=== PATIENT | male | born 1945 | race Caucasian/White ===

== ENCOUNTER 2016-09-09 10:33 | Inpatient (IN) | payer MEDICARE ==
[2016-09-09] VITALS (7 sets, daily range): BP systolic 118–133; BP diastolic 73–81; PULSE 62–67; RESP 18; TEMP 98.3–98.4; O2SAT 95–99
[~2016-09-09] VITALS: Ht 172.7 cm; Wt 89.2 kg
[2016-09-09] MEDS: SODIUM CHLOR 0.9% 1000 ML INJ 1,000 ML IV SCH (11:16)
[2016-09-09] MEDS ORDERED: METF500T PO (11:27)
[2016-09-09] MEDS ORDERED: ROSU40 PO (11:27)
[2016-09-09] MEDS ORDERED: CIAL5TAB PO (11:27)
[2016-09-09] MEDS ORDERED: IBUP200T2 PO (11:27)
[2016-09-09] MEDS ORDERED: GLIM1TAB PO (11:27)
[2016-09-09] MEDS ORDERED: ASPI1TAB69 PO (11:27)
[2016-09-09] MEDS ORDERED: LOSA100T2 PO (11:27)
[2016-09-09] MEDS ORDERED: ASPIRIN 325 MG TAB PO SCH (11:30)
[2016-09-09 11:52] LABS: AUTOMATED NEUTROPHIL # 5.4 TH/MM3 (1.8-7.7); BASOPHIL % 0.4 % (0.0-2.0); EOSINOPHIL # 0.1 TH/MM3 (0-0.4); EOSINOPHIL % 1.8 % (0.0-4.0); HEMATOCRIT 44.6 % (39.0-51.0); HEMO FLAGS DIFF FINAL; LYMPH % 17.4 % (9.0-44.0); LYMPHOCYTE # 1.4 TH/MM3 (1.0-4.8); MEAN CELL VOLUME 98.2 FL (80.0-100.0); MEAN CORPUSCULAR HEMOGLOBIN 32.9 PG (27.0-34.0); MEAN CORPUSCULAR HGB CONC 33.5 % (32.0-36.0); MONO % 10.6 % (0.0-8.0); NEUT % 69.8 % (16.0-70.0); PLATELET COUNT 171 TH/MM3 (150-450); RED BLOOD COUNT 4.54 MIL/MM3 (4.50-5.90); RED CELL DISTRIBUTION WIDTH 13.4 % (11.6-17.2); WHITE BLOOD COUNT 7.8 TH/MM3 (4.0-11.0)
[2016-09-09 12:00] LABS: APTT (PATIENT) 26.1 SEC (24.3-30.1); INTERNATIONAL NORMALIZED RATIO 1.1 RATIO; PROTHROMBIN TIME - PATIENT 11.8 SEC (9.8-11.6)
[2016-09-09 12:10] LABS: BICARBONATE 30.4 MEQ/L (21.0-32.0); POTASSIUM 4.6 MEQ/L (3.5-5.1)
[2016-09-09] MEDS ORDERED: MIDAZOLAM HCL 2 MG/2 ML VIAL ONE ×2 (13:01→13:25)
[2016-09-09] MEDS ORDERED: HEPARIN SODIUM - IV 10,000 UNITS/10 ML VIAL ONE ×2 (13:02→13:23)
[2016-09-09] MEDS ORDERED: VERAPAMIL HCL 5 MG/2 ML VIAL ONE (13:02)
[2016-09-09] MEDS ORDERED: MIDAZOLAM HCL 2 MG/2 ML VIAL IV ONE ×3 (13:18→13:57)
[2016-09-09] MEDS ORDERED: VERAPAMIL HCL 5 MG/2 ML VIAL IV PUSH ONE (13:23)
[2016-09-09] MEDS ORDERED: NITROGLYCERIN 1000 MCG/5 ML VIAL OTHER ONE (13:23)
[2016-09-09] MEDS ORDERED: RESP: ALBUTEROL 2.5 MG/3 ML NEB (SCH) ONE (13:44)
--- NOTE | 2016-09-09 16:28 | PD.CAR.PN ---
CVT Progress Note Subjective/Hospital Course: sts data discussed with pt RISK SCORES About the STS Risk Calculator Procedure: AV Replacement + CAB Risk of Mortality: 1.963% Morbidity or Mortality: 17.349% Long Length of Stay: 7.303% Short Length of Stay: 34.872% Permanent Stroke: 2.024% Prolonged Ventilation: 10.332% DSW Infection: 0.744% Renal Failure: 4.455% Reoperation: 8.122% Objective: Vital Signs Date Time Temp Pulse Resp B/P Pulse Ox O2 Delivery O2 Flow Rate FiO2 09/09/16 14:22 Room Air 09/09/16 11:30 98.3 62 18 124/81 99 Labs: Laboratory Tests Test 09/09/16 11:20 White Blood Count 7.8 TH/MM3 (4.0-11.0) Red Blood Count 4.54 MIL/MM3 (4.50-5.90) Hemoglobin 14.9 GM/DL (13.0-17.0) Hematocrit 44.6 % (39.0-51.0) Mean Corpuscular Volume 98.2 FL (80.0-100.0) Mean Corpuscular Hemoglobin 32.9 PG (27.0-34.0) Mean Corpuscular Hemoglobin 33.5 % Concent (32.0-36.0) Red Cell Distribution Width 13.4 % (11.6-17.2) Platelet Count 171 TH/MM3 (150-450) Mean Platelet Volume 7.8 FL (7.0-11.0) Neutrophils (%) (Auto) 69.8 % (16.0-70.0) Lymphocytes (%) (Auto) 17.4 % (9.0-44.0) Monocytes (%) (Auto) 10.6 % (0.0-8.0) Eosinophils (%) (Auto) 1.8 % (0.0-4.0) Basophils (%) (Auto) 0.4 % (0.0-2.0) Neutrophils # (Auto) 5.4 TH/MM3 (1.8-7.7) Lymphocytes # (Auto) 1.4 TH/MM3 (1.0-4.8) Monocytes # (Auto) 0.8 TH/MM3 (0-0.9) Eosinophils # (Auto) 0.1 TH/MM3 (0-0.4) Basophils # (Auto) 0.0 TH/MM3 (0-0.2) CBC Comment DIFF FINAL Differential Comment Prothrombin Time 11.8 SEC (9.8-11.6) Prothromb Time International 1.1 RATIO Ratio Activated Partial 26.1 SEC Thromboplast Time (24.3-30.1) Sodium Level 140 MEQ/L (136-145) Potassium Level 4.6 MEQ/L (3.5-5.1) Chloride Level 103 MEQ/L (98-107) Carbon Dioxide Level 30.4 MEQ/L (21.0-32.0) Anion Gap 7 MEQ/L (5-15) Blood Urea Nitrogen 14 MG/DL (7-18) Creatinine 0.88 MG/DL (0.60-1.30) Estimat Glomerular Filtration 86 ML/MIN (>89) Rate Random Glucose 161 MG/DL (74-106) Calcium Level 8.9 MG/DL (8.5-10.1) Result Diagram: 09/09/16 1120 09/09/16 1120 Jazz Morrow Sep 09, 2016 16:28
[2016-09-09] MEDS ORDERED: METOPROLOL TARTRATE 25 MG TAB PO SCH (17:00)
[2016-09-09] MEDS ORDERED: INSULIN REGULAR (IV INFUSION) 100 UNITS in SODIUM CHLORIDE 0.9% INJ 100 ML IV SCH (17:00)
[2016-09-09] MEDS ORDERED: PAPAVERINE INJ 60 MG, NITROGLYCERIN INJ 100 MCG, DILTIAZEM INJ 100 MG in SODIUM CHLORID... IRRIGATION SCH (17:00)
[2016-09-09] MEDS ORDERED: DEXTROSE 50% IN WATER 50 ML VIAL(D50) IV PUSH PRN (17:00)
[2016-09-09] MEDS ORDERED: SODIUM CHLORIDE 0.9% FLUSH 10 ML FLUSH IVF PRN (17:00)
[2016-09-09] MEDS ORDERED: ONDANSETRON HCL 4 MG/2 ML VIAL IVP PRN (17:00)
[2016-09-09] MEDS ORDERED: SODIUM CHLORIDE 0.9% FLUSH 10 ML FLUSH IV FLUSH PRN (17:00)
[2016-09-09] MEDS ORDERED: CHLORHEXIDINE GLUCONATE 4% SOLN 120 ML BTL TOPICAL SCH (17:00)
[2016-09-09] MEDS ORDERED: SENNOSIDES 8.6 MG TAB PO PRN (17:00)
[2016-09-09] MEDS ORDERED: ACETAMINOPHEN 325 MG TAB PO PRN (17:00)
[2016-09-09] MEDS ORDERED: NALOXONE HCL 0.4 MG/ML AMP IV PRN (17:00)
[2016-09-09] MEDS ORDERED: GLUCAGON 1 MG/ML VIAL OTHER PRN (17:00)
[2016-09-09] MEDS ORDERED: CEFAZOLIN INJ 500 MG in SODIUM CHLORIDE 0.9% IRR BTL 500 ML IRRIGATION SCH (17:00)
[2016-09-09] MEDS ORDERED: PILL SPLITTER OTHER PRN (18:00)
--- NOTE | 2016-09-09 18:01 | RADRPT ---
EXAM DATE/TIME: 09/09/2016 17:44 [facility] COMPARISON: No previous studies available for comparison. INDICATIONS : Evaluate for pneumonia, pneumothorax, or communicable disease. Pre op CABG. MEDICAL HISTORY : None. SURGICAL HISTORY : Cardiac catherization. ENCOUNTER: Initial ACUITY: 1 day PAIN SCORE: 0/10 LOCATION: Bilateral chest FINDINGS: The lungs are clear without infiltrate, nodule, or mass. There is no appreciable pleural effusion fo r technique. Heart and mediastinum are unremarkable. Degenerative changes and hypertrophic changes a re seen within the disc space and facets of the thoracic spine. CONCLUSION: No acute cardiopulmonary disease. Felipe Bello MD on September 09, 2016 at 17:57 Board Certified Radiologist. This report was verified electronically.
--- NOTE | 2016-09-09 19:48 | RADRPT ---
EXAM DATE/TIME: 09/09/2016 18:32 [facility] COMPARISON: No previous studies available for comparison. INDICATIONS : Preop cardiac surgery. MEDICAL HISTORY : Hypertension. Diabetes. SURGICAL HISTORY : Cardiac cath. ENCOUNTER: Initial ACUITY: 1 day PAIN SCORE: 0/10 LOCATION: Bilateral neck PEAK SYSTOLIC VELOCITIES (cm/sec): ICA/CCA RATIO: Right: 1.2 Left: 1.0 ICA: Right: 74 Left: 87 CCA: Right: 61 Left: 89 ECA: Right: 79 Left: 112 VERTEBRAL: Right: 50 antegrade Left: 38 antegrade Elevated flow velocities and ICA/CCA ratios have been found to correlate with increased degrees of vessel stenosis, calculated as percentage of diameter relative to a normal segment of distal ICA/CCA FINDINGS: Antegrade flow is seen in both vertebral arteries. There is mild to moderate atherosclerotic plaquing at the origin of both ICAs without any significant stenosis. CONCLUSION: No evidence for hemodynamically significant stenosis. Felipe Bello MD on September 09, 2016 at 19:46 Board Certified Radiologist. This report was verified electronically.
--- NOTE | 2016-09-09 19:49 | RADRPT ---
EXAM DATE/TIME: 09/09/2016 18:53 [facility] COMPARISON: No previous studies available for comparison. INDICATIONS : Preop cardiac surgery. MEDICAL HISTORY : Hypertension. Diabetes. SURGICAL HISTORY : Cardiac cath. ENCOUNTER: Initial ACUITY: 1 day PAIN SCORE: 0/10 LOCATION: Bilateral leg. GREATER SAPHENOUS VEIN THIGH: PROXIMAL: Right 3 mm Left 4 mm MID: Right 5 mm Left 4 mm DISTAL: Right 4 mm Left 3 mm CALF: PROXIMAL: Right 2 mm Left 4 mm MID: Right 2 mm Left 3 mm DISTAL: Right 3 mm Left 3 mm FINDINGS: The venous system of the lower extremities are patent by color Doppler imaging. Measurements of the leg veins (in mm) are listed above. There is no deep venous thrombosis. CONCLUSION: Normal examination. Felipe Bello MD on September 09, 2016 at 19:48 Board Certified Radiologist. This report was verified electronically.
--- NOTE | 2016-09-09 19:49 | RADRPT ---
EXAM DATE/TIME: 09/09/2016 18:46 [facility] COMPARISON: No previous studies available for comparison. INDICATIONS : Preop cardiac surgery. MEDICAL HISTORY : Hypertension. Diabetes. SURGICAL HISTORY : Cardiac cath. ENCOUNTER: Initial ACUITY: 1 day PAIN SCORE: 0/10 LOCATION: Bilateral leg. TECHNIQUE: Venous ultrasound of the left and right leg was performed from the inguinal ligament to the proximal calf. Real-time, color Doppler and spectral tracing, compression and augmentation techniques were us ed. FINDINGS: RIGHT LEG: There is normal compressibility of the deep venous system from the inguinal region to the proximal ca lf. No echogenic clot is seen in the lumen of the common femoral, femoral, popliteal, and posterior tibial veins. There is a normal response of the venous system to proximal and distal augmentation an d respiration. LEFT LEG: There is normal compressibility of the deep venous system from the inguinal region to the proximal ca lf. No echogenic clot is seen in the lumen of the common femoral, femoral, popliteal, and posterior tibial veins. There is a normal response of the venous system to proximal and distal augmentation an d respiration. CONCLUSION: Normal examination. Felipe Bello MD on September 09, 2016 at 19:47 Board Certified Radiologist. This report was verified electronically.
[2016-09-09] MEDS: SODIUM CHLORIDE 0.9% FLUSH 10 ML FLUSH IV FLUSH SCH (21:00)
[2016-09-09] MEDS: INSULIN ASPART SUPPLEMENTAL SCALE SQ SCH (21:00)
[2016-09-09] MEDS ORDERED: SODIUM CHLORIDE 0.9% FLUSH 10 ML FLUSH IVF SCH (21:00)
[2016-09-09] MEDS: DOCUSATE SODIUM 100 MG CAP PO SCH (21:14)
[2016-09-09] MEDS: NS 1000P @30 MLS/HR (KVO) IV SCH (21:27)
[2016-09-09 22:24] LABS: HEMOGLOBIN A1a 1.2 %; HEMOGLOBIN A1b 0.8 %; HEMOGLOBIN Ao 83.9 %; HEMOGLOBIN LA1C 2.5 %; HEMOGLOBIN P3 4.1 %
[2016-09-09 22:46] LABS: BLOOD, URINE NEG (NEG); COMMENT (UR) CULT NOT INDICATED; CULTURE IF INDICATED CULT NOT INDICATED; GLUCOSE,URINE NEG (NEG); KETONE, URINE NEG (NEG); NITRITE,URINE NEG (NEG); TRANSITIONAL EPI CELLS, URINE <1 /hpf; URINE COLOR LIGHT-YELLOW (YELLW/STRAW)
[2016-09-10] VITALS (27 sets, daily range): BP systolic 121–170; BP diastolic 74–97; PULSE 60–80; RESP 14–18; TEMP 98–98.4; O2SAT 94–98
[2016-09-10] MEDS: INSULIN ASPART SUPPLEMENTAL SCALE SQ SCH ×4 (06:30→21:00)
--- NOTE | 2016-09-10 08:18 | MB ---
cc: LORETTA MC MD DATE OF CONSULTATION 09/09/2016 DATE OF 1945 HISTORY OF THE PRESENT ILLNESS A 71-year-old male, patient of Dr. Mathur and Dr. Fierro. History of aortic stenosis over the past 20 years. Apparently his heart murmur was getting worse so he has been following with Dr. Fierro since 2011, he moved down here from [place]. He had an echocardiogram in the office that showed aortic valve area 0.4, EF of 54%, some mitral valve leaflet calcification, some LVH, left atrial enlargement, mild mitral regurgitation, mild tricuspid regurgitation. He also had a carotid ultrasound in 2013 which showed no flow limiting carotid stenosis. He underwent heart catheterization today and was found to have 70% distal LAD, diagonal was 25%. The OM 75% and the RCA 80%. We were consulted to evaluate for coronary artery bypass grafting, aortic valve replacement. PAST MEDICAL HISTORY The patient's past medical history significant for: 1. Aortic stenosis. 2. Hypertension. 3. Hyperlipidemia. 4. Diabetes mellitus. PAST SURGICAL HISTORY Surgeries include: 1. Tonsillectomy, adenoidectomy. 2. Bilateral cataract surgery. 3. Right Achilles tendon repair. ALLERGIES NO KNOWN ALLERGIES. MEDICATIONS Home medications include: 1. Aspirin 81 daily. 2. Losartan/hydrochlorothiazide 100/25 milligrams p.o. daily. 3. Crestor 40 p.o. daily. 4. Metformin 500 milligrams p.o. twice a day. 5. Glimepiride 1 milligram twice a day. 6. Cialis 5 milligrams as needed. 7. Ibuprofen as needed. FAMILY HISTORY Father from a car accident, had a history of coronary artery bypass grafting at age 60. Mother from pancreatic cancer. Has two daughters and one stepdaughter. SOCIAL HISTORY Patient is a retired dentist. Drinks one alcoholic drink beverage per evening. History of tobacco abuse, smoked for 25 years, quit in 1984 but still smokes an occasional rare cigar. REVIEW OF SYSTEMS GENERAL: No night sweats, fever, heat or cold intolerance. SKIN: No psoriasis, itching or hives. HEENT: No blurred vision, hearing loss. RESPIRATORY: No cough or shortness of breath. CARDIOVASCULAR: No chest pain. No paroxysmal nocturnal dyspnea. No orthopnea. GASTROINTESTINAL: No diarrhea, vomiting. GENITOURINARY: No burning, frequency, urgency CENTRAL NERVOUS SYSTEM: No history of TIA, CVA, seizure disorder. PHYSICAL EXAMINATION VITAL SIGNS: On exam blood pressure was 130/70, heart rate 60, afebrile. GENERAL: The patient is awake, alert, in no acute distress. HEENT: Head is normocephalic, atraumatic. Pupils equal and reactive. Oral mucosa pink, moist. NECK: Supple. No JVD. CARDIOVASCULAR: Heart sounds S1-S2. A grade 3/6 systolic murmur noted left sternal border. LUNGS: Clear to auscultation. No wheezes, rales or rhonchi. ABDOMEN: Soft, nontender. No masses or organomegaly. EXTREMITIES: No cyanosis, clubbing or edema. NEUROLOGIC: Alert and oriented times four. No focal deficits. LABORATORY DATA Lab work shows hemoglobin of 15, hematocrit of 44, white cell count 7.8, platelet count 171. Sodium 140, potassium 4.6, BUN 14, creatinine 0.88, glucose 161. INR 1.1. IMAGING pending is chest x-ray, carotid ultrasound, vein mapping. At this time cardiac films be evaluated by Dr. Loretta Mc. Procedures, alternatives and risks will be discussed with the patient. Plan will be for aortic valve replacement, coronary artery bypass grafting x3. Decision on timing for surgery dependent upon Dr. Loretta Mc. The patient is currently painfree. DICTATED BY: NICK Ambrose Loretta BAUGH /4:12 PM /8:14 AM
[2016-09-10] MEDS: ATORVASTATIN 80 MG TAB PO SCH (08:48)
[2016-09-10] MEDS: ASPIRIN EC 81 MG TABEC PO SCH (08:48)
[2016-09-10] MEDS: DOCUSATE SODIUM 100 MG CAP PO SCH ×2 (08:48→21:46)
[2016-09-10] MEDS: SODIUM CHLORIDE 0.9% FLUSH 10 ML FLUSH IV FLUSH SCH ×2 (08:49→21:00)
--- NOTE | 2016-09-10 10:16 | MA ---
cc: ZAY FIERRO M.D.NICKJANKI DATE: 09/09/2016 INDICATION FOR CATHETERIZATION: Aortic stenosis, critical. CONSENT: A full, informed consent was obtained prior to the procedure. The risks of , bleeding, myocardial infarction, perforation, aspiration, foreseen and unforeseen complications were reviewed. The patient fully appeared to understand the risks. PROCEDURAL STATEMENTS: The right radial artery and right antecubital vein were entered using a micropuncture technique with ultrasound. Via the 7-Cuban venous sheath, a 7-[place]an [place] catheter was used to perform a full right heart catheterization including saturations and cardiac outputs. Following this, a left Katie, 6-Cuban 4 catheter was used to intubate the left main. Multiple angiographic views were carried out and a JR5 catheter used to intubate the right coronary and the left ventricle. Multiple angiographic views were carried out. At the end of the procedure, all catheters were removed. The right radial sheath had a TR band placed and the right antecubital venous sheath was removed and manual pressure applied until good hemostasis was achieved. FINDINGS: I. HEMODYNAMICS: Pulmonary capillary wedge pressure was 16/15 with a mean of 13. The mean pulmonary artery pressure was 32/12 with a mean of 21. The RV pressure was 40 with a right ventricular end-diastolic pressure of 5. The right atrial pressure was 12/5. The LV pressure was 202/16 with a mean of 28. The aortic pressure was 91/57 with a mean of 71. There was evidence of gradient across the aortic valve of 101 mm peak and 80 mm mean. The mean gradient was 80.21 mm. The cardiac output by thermodilution was 4.3 liters/minute average with a valve area of 0.43 cm2. AGUILAR cardiac output which was thought to be unusually increased was 6.5 liters/minute. II. LEFT VENTRICULOGRAM: The overall LV function was normal, estimated at 60%. There was no evidence of significant mitral regurgitation or mural thrombus. III. CORONARIES: The left main was mildly calcified. It was short and free of significant disease. There is diffuse calcification of the LAD and circumflex vessels. The first diagonal branch came off close to the intermediate ramus type position and was free of significant disease. The proximal LAD was free of significant disease, although some mild plaquing was noted. The second diagonal branch was large and bifurcated and has some mild 25% disease. The mid-LAD after the second diagonal branch had a very eccentric stenosis which was difficult to see of 75%. The circumflex vessel was dominant. The circumflex vessel has some mild diffuse disease. The first obtuse marginal branch was small. The second obtuse marginal branch is small. The third obtuse marginal branch had evidence of 75% stenosis. This was a small to medium-sized vessel. The right coronary artery was a nondominant vessel and it had an 80% proximal stenosis. CONCLUSIONS: Significant three-vessel coronary artery disease with severe, almost critical aortic stenosis with aortic valve area of 0.43 cm2 with a mean gradient of 80 and a peak gradient of 101. PLAN: Aortic valve replacement with possible bypass to the ALD and possibly circumflex as per CD Surgery. NOTE: The patient will be discharged later today, will follow up in my office in due course and with Dr. Mathur in due course. Zay Fierro MD, FRCP,FACC SOFY/TANVIR /2:07 PM /9:55 AM
[2016-09-10] MEDS: SODIUM CHLOR 0.9% 1000 ML INJ 1,000 ML IV SCH (11:16)
--- NOTE | 2016-09-10 11:19 | EKG ---
Date Performed: 09/09/2016 Time Performed: 11:38:18 PTAGE: 71 years EKG: Sinus rhythm Possible anteroseptal infarct - age undetermined Lateral ST-T changes are nonspecific Abnormal ECG NO PREVIOUS TRACING DOCTOR: Jaden Chan Interpretating Date/Time 09/10/2016 11:17:14
[2016-09-10] MEDS: NS 1000P @30 MLS/HR (KVO) IV SCH (11:30)
--- NOTE | 2016-09-10 13:37 | PD.CARD.PN ---
Subjective Subjective Remarks No complaints. Family at bedside Objective Medications Current Medications Medications (Trade) Dose Ordered Sig/Vera Route Start Time Stop Time Status Last Admin Sodium Chloride 1,000 ml @ 30 mls/hr Q24H IV 09/09/16 11:30 09/09/16 21:27 (NS 1000 ml Inj) 1,000 ml @ 30 mls/hr Q24H IV 09/09/16 11:16 09/14/16 11:15 (NS Flush) 2 ml UNSCH PRN IV FLUSH 09/09/16 17:00 (NS Flush) 2 ml BID IV FLUSH 09/09/16 21:00 (Tylenol) 650 mg Q4H PRN PO 09/09/16 17:00 (Zofran Inj) 4 mg Q6H PRN IVP 09/09/16 17:00 (Colace) 100 mg Q12HR PO 09/09/16 21:00 09/10/16 08:48 (Senokot) 17.2 mg Q12H PRN PO 09/09/16 17:00 (Narcan Inj) 0.4 mg UNSCH PRN IV 09/09/16 17:00 (D50w (Vial) Inj) 25 ml UNSCH PRN IV PUSH 09/09/16 17:00 (Glucagon Inj) 1 mg UNSCH PRN OTHER 09/09/16 17:00 (Ecotrin Ec) 81 mg DAILY PO 09/10/16 09:00 09/10/16 08:48 (Lipitor) 80 mg DAILY PO 09/10/16 09:00 09/10/16 08:48 (Pill Splitter) 1 ea UNSCH PRN OTHER 09/09/16 18:00 Vital Signs / I&O Vital Signs Date Time Temp Pulse Resp B/P Pulse Ox O2 Delivery O2 Flow Rate FiO2 09/10/16 12:00 63 09/10/16 11:00 65 09/10/16 11:00 98.2 68 16 144/92 94 09/10/16 10:00 69 09/10/16 09:00 74 09/10/16 08:00 71 09/10/16 07:45 98.0 64 14 121/85 95 09/10/16 06:00 63 09/10/16 05:02 61 09/10/16 04:33 64 09/10/16 03:30 98.3 65 16 125/74 95 09/10/16 03:08 64 09/10/16 02:00 61 09/10/16 01:15 67 09/10/16 00:27 65 09/09/16 23:20 98.3 67 18 118/73 95 09/09/16 23:00 66 09/09/16 22:00 62 09/09/16 21:00 66 09/09/16 20:45 98.4 64 18 133/76 95 09/09/16 20:30 64 09/09/16 14:22 Room Air I/O 09/09/16 09/09/16 09/09/16 09/10/16 09/10/16 09/10/16 07:00 15:00 23:00 07:00 15:00 23:00 Intake Total 725 ml Output Total 950 ml Balance -225 ml Intake Oral 480 ml IV Total 245 ml Output Urine Total 950 ml # Bowel Movements 0 Physical Exam GENERAL: Sitting up in the chair eating lunch SKIN: Warm and dry. HEAD: Normocephalic. EYES: No scleral icterus. No injection or drainage. NECK: Supple, trachea midline. CARDIOVASCULAR: Regular rate and rhythm. Late systolic murmur RESPIRATORY: Breath sounds equal bilaterally. No accessory muscle use. GASTROINTESTINAL: Abdomen soft, non-tender, nondistended. MUSCULOSKELETAL: No cyanosis, or edema. BACK: Nontender without obvious deformity. No CVA tenderness. Laboratory Laboratory Tests Test 09/09/16 09/10/16 09/10/16 21:10 05:27 07:20 Urine Color LIGHT-YELLOW Urine Turbidity CLEAR Urine pH 7.0 Urine Specific [place] 1.022 Urine Protein NEG mg/dL Urine Glucose (UA) NEG mg/dL Urine Ketones NEG mg/dL Urine Occult Blood NEG Urine Nitrite NEG Urine Bilirubin NEG Urine Urobilinogen LESS THAN 2.0 MG/DL Urine Leukocyte Esterase NEG Urine WBC 1 /hpf Urine Transitional Epithelial <1 /hpf Cells Microscopic Urinalysis Comment CULT NOT INDICATED Nasal Screen MRSA (PCR) NEGATIVE Blood Type A POSITIVE A POSITIVE Antibody Screen NEGATIVE Crossmatch Leukocyte-Reduced Red Blood Cells Blood Bank Comment Imaging Last 72 hours Impressions Lower Extremity Ultrasound 09/09/16 0000 Signed Impressions: Service Date/Time: Friday, September 09, 2016 18:53 - CONCLUSION: Normal examination. Felipe Bello MD Lower Extremity Ultrasound 09/09/16 0000 Signed Impressions: Service Date/Time: Friday, September 09, 2016 18:46 - CONCLUSION: Normal examination. Felipe Bello MD Chest X-Ray 09/09/16 0000 Signed Impressions: Service Date/Time: Friday, September 09, 2016 17:44 - CONCLUSION: No acute cardiopulmonary disease. Felipe Bello MD Carotid Artery Ultrasound 09/09/16 0000 Signed Impressions: Service Date/Time: Friday, September 09, 2016 18:32 - CONCLUSION: No evidence for hemodynamically significant stenosis. Felipe Bello MD Assessment and Plan Assessment and Plan Assessment: S/p cardiac cath 09/09/2016 evidence ASHD and severe . Pending AVR and CABG tomorrow with Dr Thomson. HTN HLD DM Smoking history Plan: Pending surgery tomorrow Continue statin and ASA. Pending discharge, will initiate BB. Will follow up after surgery Assessment and plan discussed with Dr. Fierro. Jessica Weller Sep 10, 2016 13:37
--- NOTE | 2016-09-10 14:24 | PD.CAR.PN ---
CVT Progress Note Subjective/Hospital Course: 71/ male hx of severe Aortic stenosis / worsening per echo, underwent cardiac cath by Dr Fierro found to have 3 vessel coronary artery disease / 70% distal LAD, 75% OM, 80% RCA admitted for surgery scheduled for PMH: aortic stenosis, HTN, HLP. DM EF 60% 09/09 pt remains pain free, no SOB. scheduled for surgery in am Objective: GENERAL: SKIN: Warm and dry. HEAD: Normocephalic. EYES: No scleral icterus. No injection or drainage. NECK: Supple, trachea midline. No JVD or lymphadenopathy. CARDIOVASCULAR: Regular rate and rhythm without murmurs, gallops, or rubs. RESPIRATORY: Breath sounds equal bilaterally. No accessory muscle use. GASTROINTESTINAL: Abdomen soft, non-tender, nondistended. MUSCULOSKELETAL: No cyanosis, or edema. BACK: Nontender without obvious deformity. No CVA tenderness. Vital Signs Date Time Temp Pulse Resp B/P Pulse Ox O2 Delivery O2 Flow Rate FiO2 09/10/16 12:00 63 09/10/16 11:00 65 09/10/16 11:00 98.2 68 16 144/92 94 09/10/16 10:00 69 09/10/16 09:00 74 09/10/16 08:00 71 09/10/16 07:45 98.0 64 14 121/85 95 09/10/16 06:00 63 09/10/16 05:02 61 09/10/16 04:33 64 09/10/16 03:30 98.3 65 16 125/74 95 09/10/16 03:08 64 09/10/16 02:00 61 09/10/16 01:15 67 09/10/16 00:27 65 09/09/16 23:20 98.3 67 18 118/73 95 09/09/16 23:00 66 09/09/16 22:00 62 09/09/16 21:00 66 09/09/16 20:45 98.4 64 18 133/76 95 09/09/16 20:30 64 09/09/16 14:22 Room Air Labs: Laboratory Tests Test 09/10/16 09/10/16 05:27 07:20 Blood Type A POSITIVE A POSITIVE Antibody Screen NEGATIVE Crossmatch Leukocyte-Reduced Red Blood Cells Blood Bank Comment Result Diagram: 09/09/16 1120 09/09/16 1120 Telemetry: NSR (1) Coronary artery disease Plan: ASA, statin, BB for surgery in am (2) Diabetes mellitus Plan: on diabetic diet, insulin sliding scale (3) Hyperlipemia Plan: on statin (4) Hypertension Plan: controlled, restart ARB after surgery Jazz Morrow Sep 10, 2016 14:24
[2016-09-10] MEDS ORDERED: ALPRAZolam 0.25 MG TAB PO PRN (17:15)
[2016-09-11] VITALS (19 sets, daily range): BP systolic 89–126; BP diastolic 45–75; PULSE 51–72; RESP 12–18; TEMP 97.7–98.6; O2SAT 93–100
[2016-09-11] MEDS ORDERED: HEPARIN SODIUM - SQ 10,000 UNITS/ML VIAL SQ ONE (05:00)
[2016-09-11] MEDS ORDERED: CALCIUM CHLORIDE 10% SOLN 1 GRAM/10 ML SYR IV ONE (05:00)
[2016-09-11] MEDS ORDERED: AMIODARONE HCL 150 MG/3 ML VIAL IV ONE (05:00)
[2016-09-11] MEDS ORDERED: MAGNESIUM SULFATE 1000 MG/2 ML VIAL (PED) IV ONE (05:00)
[2016-09-11] MEDS ORDERED: PROTAMINE SULFATE 250 MG/25 ML VIAL IV ONE (05:00)
[2016-09-11] MEDS ORDERED: DEXMEDETOMIDINE INJ 50 ML IV ONE (05:00)
[2016-09-11] MEDS ORDERED: ARTIFICIAL TEARS OPTH OINT 3.5 APPLIC/3.5 GM TUBO ONE (05:00)
[2016-09-11] MEDS ORDERED: AMINOCAPROIC ACID INJ 250 MG/ML 20 ML VIAL IV ONE (05:00)
[2016-09-11] MEDS ORDERED: PHENYLEPHRINE HCL 10 MG/ML VIAL IV ONE (05:00)
[2016-09-11] MEDS ORDERED: GLYCOPYRROLATE 0.2 MG/ML VIAL IV ONE (05:00)
[2016-09-11] MEDS ORDERED: ceFAZolin 2 GM PREMIX 50 ML IV ONE (05:00)
[2016-09-11] MEDS ORDERED: VECURONIUM BROMIDE 10 MG VIAL IV ONE (05:00)
[2016-09-11] MEDS ORDERED: VANCOMYCIN HCL 1000 MG VIAL ONE (06:29)
[2016-09-11] MEDS ORDERED: HEPARIN SODIUM - SQ 10,000 UNITS/ML VIAL ONE (06:29)
[2016-09-11] MEDS ORDERED: HEPARIN SODIUM - IV 10,000 UNITS/10 ML VIAL ONE (06:44)
[2016-09-11] MEDS ORDERED: POTASSIUM CHLORIDE 20 MEQ/10 ML VIAL ONE (06:45)
[2016-09-11] MEDS ORDERED: CUSTODIOL HTK IRR SOLN 1,000 ML ONE (06:45)
[2016-09-11] MEDS ORDERED: LIDOCAINE HCL 2% 100 MG/5 ML SYRINGE ONE (06:46)
[2016-09-11] MEDS ORDERED: SODIUM BICARBONATE 8.4% INJ 50 ML ONE (06:46)
[2016-09-11] MEDS ORDERED: CALCIUM CHLORIDE 10% SOLN 1 GRAM/10 ML SYR ONE (06:46)
[2016-09-11] MEDS ORDERED: MANNITOL INJ 50 ML ONE (06:47)
[2016-09-11] MEDS ORDERED: ALBUMIN HUMAN 25% 12.5 GM/50 ML BAGP IV ONE (06:47)
[2016-09-11] MEDS: INSULIN ASPART SUPPLEMENTAL SCALE SQ SCH ×2 (07:00→11:00)
[2016-09-11] MEDS: ceFAZolin 2 GM PREMIX 50 ML IV SCH ×3 (07:55→22:55)
[2016-09-11] MEDS ORDERED: LACTATED RINGER'S 1000 ML INJ 3,000 ML IV ONE (08:01)
[2016-09-11] MEDS ORDERED: NORMOSOL R INJ 2,000 ML IV ONE (08:01)
[2016-09-11] MEDS ORDERED: SODIUM CHLORIDE 0.9% INJ 200 ML IV ONE (08:01)
[2016-09-11] MEDS ORDERED: SODIUM CHLOR 0.9% 250 ML INJ 250 ML IV ONE (08:01)
[2016-09-11] MEDS ORDERED: SODIUM CHLORID 0.9% 500 ML INJ 500 ML IV ONE (08:01)
[2016-09-11] MEDS: SODIUM CHLORIDE 0.9% FLUSH 10 ML FLUSH IV FLUSH SCH ×2 (09:00→21:00)
[2016-09-11] MEDS: ATORVASTATIN 80 MG TAB PO SCH (09:00)
[2016-09-11] MEDS: DOCUSATE SODIUM 100 MG CAP PO SCH ×2 (09:00→22:53)
[2016-09-11] MEDS: ASPIRIN EC 81 MG TABEC PO SCH (09:00)
[2016-09-11] MEDS: SODIUM CHLOR 0.9% 1000 ML INJ 1,000 ML IV SCH (11:16)
[2016-09-11] MEDS: NS 1000P @30 MLS/HR (KVO) IV SCH (11:30)
[2016-09-11] MEDS ORDERED: DOBUTamine PREMIX DRIP 250 ML IV SCH (12:53)
[2016-09-11] MEDS ORDERED: LACTATED RINGER'S 1000 ML INJ 500 ML IV PRN (12:53)
[2016-09-11] MEDS ORDERED: MORPHINE SULFATE 4 MG/ML INJ IV PRN (13:00)
[2016-09-11] MEDS ORDERED: EPINEPHrine (1:1000) INJ 4 MG in DEXTROSE 5% IN WATER INJ 246 ML IV SCH ×2 (13:00)
[2016-09-11] MEDS ORDERED: KETOROLAC TROMETHAMINE 30 MG/ML (IVP) VIAL IV PUSH PRN (13:00)
[2016-09-11] MEDS ORDERED: DEXMEDETOMIDINE INJ 50 ML IV SCH (13:00)
[2016-09-11] MEDS ORDERED: DOPamine INJ PREMIX 500 ML IV SCH (13:00)
[2016-09-11] MEDS ORDERED: ACETAMINOPHEN 650 MG SUPP RECTAL PRN (13:00)
[2016-09-11] MEDS ORDERED: INSULIN REGULAR (IV INFUSION) 100 UNITS in SODIUM CHLORIDE 0.9% INJ 99 ML IV SCH (13:00)
[2016-09-11] MEDS ORDERED: ALBUMIN HUMAN 5% 12.5 GM/250 ML BOTTLE IV PRN (13:00)
[2016-09-11] MEDS ORDERED: MAGNESIUM SULFATE INJ 2 GM in SODIUM CHLORIDE 0.9% INJ 100 ML IV PRN ×4 (13:00)
[2016-09-11] MEDS ORDERED: CLEVIDIPINE INJ 50 ML IV SCH (13:00)
[2016-09-11] MEDS ORDERED: DEXTROSE 50% IN WATER 50 ML VIAL(D50) IV PUSH PRN (13:00)
[2016-09-11] MEDS ORDERED: hydrALAZINE HCL 20 MG/ML VIAL IV PRN (13:00)
[2016-09-11] MEDS ORDERED: PHENYLEPHRINE INJ 40 MG in DEXTROSE 5% IN WATE 500 ML INJ 496 ML IV SCH ×2 (13:00)
[2016-09-11] MEDS ORDERED: CALCIUM CHLORIDE INJ 1 GM in SODIUM CHLORIDE 0.9% INJ 100 ML IV PRN (13:00)
[2016-09-11] MEDS ORDERED: ACETAMINOPHEN 325 MG TAB PO PRN (13:00)
[2016-09-11] MEDS ORDERED: CALCIUM CHLORIDE 10% 1 GRAM/10 ML VIAL IV PRN (13:00)
[2016-09-11] MEDS ORDERED: ONDANSETRON HCL 4 MG/2 ML VIAL IV PUSH PRN (13:00)
[2016-09-11] MEDS ORDERED: POTASSIUM CHLORIDE 20 MEQ CONTROLLED RELEASE TAB PO PRN ×2 (13:00)
[2016-09-11] MEDS ORDERED: NITROGLYCERIN-DEXTROSE INJ 250 ML IV SCH (13:00)
[2016-09-11] MEDS ORDERED: METOPROLOL TARTRATE 5 MG/5 ML VIAL IV PUSH PRN (13:00)
[2016-09-11] MEDS ORDERED: POTASSIUM CHLOR 20 MEQ PREMIX 100 ML IV PRN ×3 (13:00)
[2016-09-11] MEDS ORDERED: MEPERIDINE HCL 25 MG/ML VIAL IV PRN (13:00)
[2016-09-11] MEDS ORDERED: Post-op Orders (for Pharmacy) MISC OTHER ONE (13:32)
--- NOTE | 2016-09-11 13:44 | PD.OP ---
cc: Zay Fierro MD; Beronica Thomson MD Operative Report Date of Surgery: Sep 11, 2016 Preoperative Diagnosis: Postoperative Diagnosis: Procedure: 1. Off-pump Coronary Artery Bypass Grafting x 2 with left internal mammary artery (JOHNSON) to left anterior descending (LAD), reverse saphenous vein graft to LPDA 2. Aortic Valve Replacement with 23mm Roe Intuity Elite Tissue Valve 3. Left Leg Endoscopic Vein [place] 4. Intraoperative Vein Mapping. . Surgeon: Beronica Thomson Rail Track Layer(s): Rom Epstein Operation and Findings: PREPROCEDURE DIAGNOSES 1. Severe Multi Vessel Coronary Artery Disease. 2. Critical Aortic Valve Stenosis POSTPROCEDURE DIAGNOSES Same SURGICAL PROCEDURE 1. Off-pump Coronary Artery Bypass Grafting x 2 with left internal mammary artery (JOHNSON) to left anterior descending (LAD), reverse saphenous vein graft to LPDA 2. Aortic Valve Replacement with 23mm Roe Intuity Elite Tissue Valve 3. Left Leg Endoscopic Vein [place] 4. Intraoperative Vein Mapping. SURGEON Beronica Thomson MD EXPLOITATION ANALYST CHRISTINA Devlin ANESTHESIA General endotracheal MEAT STUFFER BRIGITTE Coleman MD PREPARATION ChloraPrep. COUNTS Needle, sponge, and instrument counts were correct. DRAINS Two 32-Greek mediastinal tubes. COMPLICATIONS None. INDICATIONS FOR PROCEDURE The patient is a 71-year-old presenting with shortness of breath and known . Patient was noted to have multi-vessel coronary artery disease in addition to severe . The patient is being brought to the operating room for surgical revascularization and AVR therapy. PROCEDURE Patient was brought to the operating room and placed supine on the OR table. Following the induction of adequate general endotracheal anesthesia and placement of appropriate monitoring devices, intraoperative vein mapping was performed which revealed good-caliber conduit in bilateral lower extremities. The patient was then prepped and draped in standard sterile fashion. Next, 2500 units of intravenous heparin was given. The left greater saphenous vein was harvested endoscopically. This appeared to be a useable-caliber conduit. Simultaneously, a median sternotomy was performed and the left internal mammary artery dissected free off the posterior sternal table. The patient was systemically heparinized and anticoagulation monitored by serial ACT measurements. The internal mammary artery had good pulsatile flow in it and was a good-caliber conduit. The pericardium was then divided in the midline, the cradle created and targets analyzed. At this point, all anastomoses were performed in a beating-heart fashion using the Maquet stabilizing system. The left internal mammary artery was anastomosed to the mid LAD in an end-to-side fashion using 7-0 Prolene. Segment of saphenous vein graft was then anastomosed to the LPDA in an end-to-side fashion using 7-0 Prolene. Then 2 pursestring sutures of 2-0 Ethibond were placed on the aorta proximal to the takeoff of the innominate artery, another was placed in the right atrial appendage. At this point, aortic and 2-stage venous cannulas were introduced and attached to the arterial and venous components of the bypass circuit respectively. Antegrade cardioplegia cannula and a left ventricular vent, through the right superior pulmonary vein, were also placed. The patient was placed on cardiopulmonary bypass and core cooling initiated to a temperature of 32 degrees centigrade. The crossclamp was applied and 2 L of antegrade cardioplegia solution ( Intermediate HTK) given in an antegrade fashion in addition to topical cooling with slushed saline. Upon achieving adequate diastolic arrest of the heart a transverse aortotomy was performed extending towards the non-coronary annulus. The aortic valve was noted to be very heavily calcified with the calcification extending into ascending aorta as well as the anterior leaflet of the mitral valve. The valve was excised and sent for microbiologic analysis. Circumferential decalcification was performed. Three simple sutures of 2-0 Ethibond were placed on the aortic annulus at the nadirs of the three annuli. After adequate sizing, a 23 mm Roe Intuity Elite valve was brought in the surgical field and the sutures passed through the skirt. The valve was situated supra-annular with the skirt subannular. The valve was positioned with expansion of the balloon to 4.5 theresa and the sutures tied with Cor-knots. This appeared to be a good fit. Gradual rewarming was initiated and the aortotomy closed in 2 layers. This was with 4-0 Prolene; the 1st layer being horizontal mattress, the 2nd layer being running baseball stitch. The proximal anastomosis was then constructed to the ascending aorta in a running manner using 6-0 Prolene.The cross clamp was removed and upon achieving normothermic cardiac activity, transesophageal echocardiography revealed a well-situated aortic prosthesis with no evidence of perivalvular leak and no aortic stenosis or aortic regurgitation. Decannulation was performed and all sites were inspected for hemostasis. All anastomotic sites were inspected and appeared to be hemostatic and patent. Protamine solution was given. Strict hemostasis was assured. The closure was undertaken. 2 chest tubes were placed. The pericardium was reapproximated in the midline. The sternum was approximated using sternal wires. The muscular and fascial layer were then closed in 3 layers. The endoscopic vein harvest site was closed in 2 layers. The patient tolerated the procedure well and was transferred to CVICU in stable condition. Beronica Thomson MD Sep 11, 2016 13:44
[2016-09-11] MEDS ORDERED: fentaNYL CITRATE 1000 MCG/20 ML VIAL ONE (13:49)
[2016-09-11] MEDS ORDERED: MIDAZOLAM HCL 5 MG/5 ML VIAL ONE (13:49)
--- NOTE | 2016-09-11 14:04 | RADRPT ---
EXAM DATE/TIME: 09/11/2016 13:44 [facility] COMPARISON: CHEST PA & LAT, September 09, 2016, 17:44. INDICATIONS : Post heart surgery MEDICAL HISTORY : None. SURGICAL HISTORY : None. ENCOUNTER: Initial ACUITY: 1 day PAIN SCORE: Non-responsive. LOCATION: chest FINDINGS: There has been interval sternotomy. Endotracheal tube is present in good position with tip 2 cm above the jaquan. A nasogastric tube descends in the stomach. Thoracostomy tubes are present. Right centra l lines are present. There is mild basilar atelectasis. Cardiac contours are satisfactory for techniq ue and projection. CONCLUSION: Satisfactory postoperative appearance. Alvin Meadows MD on September 11, 2016 at 14:01 Board Certified Radiologist. This report was verified electronically.
[2016-09-11] MEDS: ACETAMINOPHEN 1000 MG/100 ML VIAL IV SCH ×2 (15:12→22:54)
[2016-09-11] MEDS ORDERED: RESP: RACEPINEPHRINE 2.25% 0.5 ML NEB NEB PRN (17:15)
[2016-09-11] MEDS ORDERED: RESP: ALBUTEROL 2.5 MG/IPRATROPIUM 0.5 MG NEB (PRN) NEB (17:15)
[2016-09-11] MEDS ORDERED: PHENYLEPHRINE HCL 10 MG/ML VIAL ONE (18:45)
[2016-09-11] MEDS: RESP: ALBUTEROL 2.5 MG/IPRATROPIUM 0.5 MG NEB (SCH) NEB (20:47)
[2016-09-11] MEDS: AMIODARONE 200 MG TAB PO SCH (22:53)
[2016-09-12] VITALS (11 sets, daily range): BP systolic 102–162; BP diastolic 47–72; PULSE 68–93; RESP 16–18; TEMP 98–99.2; O2SAT 94–99
[2016-09-12] MEDS: ACETAMINOPHEN 1000 MG/100 ML VIAL IV SCH ×2 (03:00→09:56)
[2016-09-12] MEDS: RESP: ALBUTEROL 2.5 MG/IPRATROPIUM 0.5 MG NEB (SCH) NEB ×4 (03:59→22:51)
--- NOTE | 2016-09-12 05:28 | RADRPT ---
EXAM DATE/TIME: 09/12/2016 03:37 [facility] COMPARISON: CHEST SINGLE AP, September 11, 2016, 13:44. INDICATIONS : Status post CABG. MEDICAL HISTORY : None. SURGICAL HISTORY : CABG. ENCOUNTER: Subsequent ACUITY: 4 - 6 days PAIN SCORE: Non-responsive. LOCATION: chest FINDINGS: A single portable frontal view of the chest shows no change in the position of the thoracostomy tubes or central line. The endotracheal tube and nasogastric tube have been removed. A small left effusion and left basilar atelectasis are stable. Right lung is clear. Heart is mildly enlarged. Median chi otomy wires noted. No pneumothorax. CONCLUSION: 1. Tiny left effusion and left basilar atelectasis. 2. No pneumothorax. Vernon Pete Jr., MD on September 12, 2016 at 5:26 Board Certified Radiologist. This report was verified electronically.
[2016-09-12 05:34] LABS: HEMATOCRIT 31.9 % (39.0-51.0); MEAN CELL VOLUME 98.5 FL (80.0-100.0); MEAN CORPUSCULAR HEMOGLOBIN 33.8 PG (27.0-34.0); MEAN CORPUSCULAR HGB CONC 34.3 % (32.0-36.0); PLATELET COUNT 150 TH/MM3 (150-450); RED BLOOD COUNT 3.24 MIL/MM3 (4.50-5.90); RED CELL DISTRIBUTION WIDTH 13.4 % (11.6-17.2); REVIEW FLAG FINAL; WHITE BLOOD COUNT 22.4 TH/MM3 (4.0-11.0)
[2016-09-12] MEDS: ceFAZolin 2 GM PREMIX 50 ML IV SCH ×3 (05:45→20:57)
[2016-09-12] MEDS: ACETAMINOPHEN/HYDROcodone 325 MG/5 MG TAB PO PRN ×3 (05:46→20:56)
[2016-09-12] MEDS: PANTOPRAZOLE SOD 40 MG DELAYED RELEASE TAB PO SCH (06:00)
[2016-09-12 06:06] LABS: BICARBONATE 22.3 MEQ/L (21.0-32.0); POTASSIUM 3.8 MEQ/L (3.5-5.1)
[2016-09-12] MEDS: SODIUM CHLORIDE 0.9% FLUSH 10 ML FLUSH IV FLUSH SCH ×2 (09:00→20:58)
[2016-09-12] MEDS ORDERED: BISACODYL 10 MG SUPP RECTAL PRN (09:15)
[2016-09-12] MEDS ORDERED: DEXTROSE 50% IN WATER 50 ML VIAL(D50) IV PRN (09:15)
[2016-09-12] MEDS ORDERED: SOD PHOSPHATE/SOD BIPHOSPHATE (ADULT) ENEMA 133ML RECTAL PRN (09:15)
[2016-09-12] MEDS ORDERED: GLUCAGON 1 MG/ML VIAL OTHER PRN (09:15)
[2016-09-12] MEDS: CLOPIDOGREL 75 MG TAB PO SCH (09:57)
[2016-09-12] MEDS: ASPIRIN 81 MG CHEW TAB PO SCH (09:57)
[2016-09-12] MEDS: AMIODARONE 200 MG TAB PO SCH ×2 (09:57→20:55)
[2016-09-12] MEDS: ATORVASTATIN 80 MG TAB PO SCH (09:57)
[2016-09-12] MEDS: DOCUSATE SODIUM 100 MG CAP PO SCH ×4 (09:58→20:57)
[2016-09-12] MEDS ORDERED: INSULIN DETEMIR 100 UNITS/ML VIAL SQ ONE (10:00)
[2016-09-12] MEDS: INSULIN ASPART SUPPLEMENTAL SCALE SQ SCH ×4 (10:00→22:00)
[2016-09-12] MEDS: METOPROLOL TARTRATE 25 MG TAB PO SCH ×2 (10:13→20:57)
[2016-09-12] MEDS: NS 1000P @30 MLS/HR (KVO) IV SCH (11:30)
--- NOTE | 2016-09-12 14:34 | PD.CARD.PN ---
Subjective Subjective Remarks The patient is up in the chair. Feels "beat up". Denies acute pain or SOB. Currently on Chicho. NSR. Has not urinated since removing urinary catheter. ( Jessica Weller) Objective Medications Current Medications Medications (Trade) Dose Ordered Sig/Vera Route Start Time Stop Time Status Last Admin (NS 1000 ml Inj) 1,000 ml @ 30 mls/hr Q24H IV 09/09/16 11:30 09/09/16 21:27 (NS Flush) 2 ml UNSCH PRN IV FLUSH 09/09/16 17:00 (NS Flush) 2 ml BID IV FLUSH 09/09/16 21:00 09/12/16 09:00 (Colace) 100 mg Q12HR PO 09/09/16 21:00 09/12/16 09:58 (Senokot) 17.2 mg Q12H PRN PO 09/09/16 17:00 (Narcan Inj) 0.4 mg UNSCH PRN IV 09/09/16 17:00 (Lipitor) 80 mg DAILY PO 09/10/16 09:00 09/12/16 09:57 (Pill Splitter) 1 ea UNSCH PRN OTHER 09/09/16 18:00 Alprazolam 0.25 mg 0.25 mg Q8H PRN PO 09/10/16 17:15 09/10/16 21:46 Phenylephrine HCl 40 mg/Dextrose 500 ml @ 0 mls/hr TITRATE IV 09/11/16 13:00 (Lr 1000 ml Inj) 500 ml @ 500 mls/hr Q1H PRN IV 09/11/16 12:53 (Aspirin Chew) 81 mg DAILY PO 09/12/16 09:00 09/12/16 09:57 (Plavix) 75 mg DAILY PO 09/12/16 09:00 09/12/16 09:57 (Protonix) 40 mg DAILY@06 PO 09/12/16 06:00 09/12/16 06:00 (Cordarone) 200 mg Q12HR PO 09/11/16 21:00 09/12/16 09:57 (Tylenol) 650 mg Q4H PRN PO 09/11/16 13:00 (Tylenol Supp) 650 mg Q4H PRN RECTAL 09/11/16 13:00 (Calvin 5-325 Mg) 1 tab Q3H PRN PO 09/11/16 13:00 09/12/16 05:46 (Calvin 5-325 Mg) 2 tab Q3H PRN PO 09/11/16 13:00 (Toradol Inj) 15 mg Q6H PRN IV PUSH 09/11/16 13:00 09/13/16 12:59 (fentaNYL INJ) 25 mcg Q1H PRN IV 09/11/16 13:00 (Zofran Inj) 4 mg Q6H PRN IV PUSH 09/11/16 13:00 Hydralazine HCl 10 mg 10 mg Q4H PRN IV 09/11/16 13:00 Magnesium Sulfate 2 gm/Sodium Chloride 104 ml @ 100 mls/hr UNSCH PRN IV 09/11/16 13:00 Magnesium Sulfate 2 gm/Sodium Chloride 104 ml @ 50 mls/hr UNSCH PRN IV 09/11/16 13:00 (Ancef 2 Gm Premix) 50 ml @ 100 mls/hr Q8H IV 09/11/16 21:00 09/13/16 05:29 09/12/16 12:52 (Colace) 100 mg BID PO 09/12/16 10:00 (Theragran M Tab) 1 tab DAILY PO 09/13/16 09:00 (Milk Of Magnesia Liq) 30 ml DAILY PO 09/13/16 09:00 (Miralax) 17 gm DAILY PO 09/13/16 09:00 (Senokot) 8.6 mg HS PO 09/12/16 21:00 (Fleets Enema (Adult)) 133 ml UNSCH PRN RECTAL 09/12/16 09:15 (Lopressor) 12.5 mg BID PO 09/12/16 10:00 09/12/16 10:13 (NovoLOG SUPPLEMENTAL SCALE) 1 02,06,10,14,18,22 SQ 09/12/16 10:00 (D50w (Vial) Inj) 25 ml UNSCH PRN IV 09/12/16 09:15 (Glucagon Inj) 1 mg UNSCH PRN OTHER 09/12/16 09:15 (Glucophage) 500 mg BIDPC PO 09/13/16 09:00 (Amaryl) 1 mg DAILYAC PO 09/13/16 08:00 Vital Signs / I&O Vital Signs Date Time Temp Pulse Resp B/P Pulse Ox O2 Delivery O2 Flow Rate FiO2 09/12/16 08:26 95 Nasal Cannula 4.00 09/12/16 07:01 93 16 102/53 96 09/12/16 06:50 20 09/12/16 03:00 84 09/12/16 03:00 99.2 84 18 114/54 94 110/48 09/11/16 23:30 18 09/11/16 23:00 72 09/11/16 23:00 98.2 72 18 102/46 96 104/46 09/11/16 20:47 93 Nasal Cannula 4.00 09/11/16 19:00 98.4 69 18 94/45 96 09/11/16 19:00 61 09/11/16 15:47 59 09/11/16 15:44 98.6 09/11/16 15:35 95 Nasal Cannula 4.00 09/11/16 15:35 95 Nasal Cannula 4 09/11/16 15:00 61 09/11/16 15:00 94 80 09/11/16 15:00 98.3 65 12 95/48 95 90/47 09/11/16 14:53 100 09/11/16 14:30 98.6 I/O 09/11/16 09/11/16 09/11/16 09/12/16 09/12/16 09/12/16 07:00 15:00 23:00 07:00 15:00 23:00 Intake Total 560 ml 2020 ml 1469 ml Output Total 750 ml 780 ml Balance 560 ml 1270 ml 689 ml Intake Oral 560 ml 10 ml 730 ml IV Total 2010 ml 739 ml Output Urine Total 550 ml 600 ml Chest Tube Drainage Total 200 ml 180 ml # Voids 3 # Bowel Movements 0 0 Physical Exam GENERAL: Sitting up in the chair, daughters at bedside SKIN: Warm and dry. HEAD: Normocephalic. EYES: No scleral icterus. No injection or drainage. NECK: Supple, trachea midline. Right IJ central line CARDIOVASCULAR: Regular rate and rhythm. Chest incision dressing C/D/I RESPIRATORY: Breath sounds equal bilaterally. No accessory muscle use. GASTROINTESTINAL: Abdomen soft, non-tender, nondistended. MUSCULOSKELETAL: No cyanosis, mild anasarca BACK: Nontender without obvious deformity. Laboratory Laboratory Tests Test 09/12/16 04:35 White Blood Count 22.4 TH/MM3 Red Blood Count 3.24 MIL/MM3 Hemoglobin 10.9 GM/DL Hematocrit 31.9 % Mean Corpuscular Volume 98.5 FL Mean Corpuscular Hemoglobin 33.8 PG Mean Corpuscular Hemoglobin 34.3 % Concent Red Cell Distribution Width 13.4 % Platelet Count 150 TH/MM3 Mean Platelet Volume 8.3 FL Sodium Level 141 MEQ/L Potassium Level 3.8 MEQ/L Chloride Level 107 MEQ/L Carbon Dioxide Level 22.3 MEQ/L Anion Gap 12 MEQ/L Blood Urea Nitrogen 17 MG/DL Creatinine 0.82 MG/DL Estimat Glomerular Filtration 93 ML/MIN Rate Random Glucose 113 MG/DL Calcium Level 8.4 MG/DL Magnesium Level 2.0 MG/DL Imaging Last 72 hours Impressions Chest X-Ray 09/12/16 0500 Signed Impressions: Service Date/Time: Monday, September 12, 2016 03:37 - CONCLUSION: 1. Tiny left effusion and left basilar atelectasis. 2. No pneumothorax. Vernon Pete Jr., MD Chest X-Ray 09/11/16 0000 Signed Impressions: Service Date/Time: August 13:44 - CONCLUSION: Satisfactory postoperative appearance. Alvin Meadows MD (Jessica Weller) Assessment and Plan Problem List: (1) Coronary artery disease (2) Diabetes mellitus (3) Hyperlipemia (4) Hypertension Assessment and Plan Assessment: S/p AVR and CABG with Dr. Thomson (09/11/2016) Off-pump Coronary Artery Bypass Grafting x 2 with left internal mammary artery (JOHNSON) to left anterior descending (LAD), reverse saphenous vein graft to LPDA and Aortic Valve Replacement with 23mm Roe Intuity Elite Tissue Valve S/p cardiac cath 09/09/2016 evidence ASHD and severe . Pending AVR and CABG tomorrow with Dr Thomson. Post operative respiratory insufficiency HTN- currently hypotensive on pressors HLD DM Smoking history Plan: Plan of care per CV surgery Will follow up on Thursday Assessment and plan discussed with Dr. Fierro. (Jessica Weller) Assessment and Plan The exam, history, and the medical decision-making described in the above note were completed with the assistance of the mid-level provider. I reviewed and agree with the findings presented. I attest that I had a [id number] encounter with the patient on the same day, and personally performed and documented my assessment and findings in the medical record. Pt doing well post AVR CABG. (Zay Fierro MD) Jessica Weller Sep 12, 2016 14:34 Zay Fierro MD Sep 12, 2016 15:01
[2016-09-12] MEDS: SENNOSIDES 8.6 MG TAB PO SCH (20:56)
[2016-09-13] VITALS (27 sets, daily range): BP systolic 108–131; BP diastolic 59–69; PULSE 68–83; RESP 16–20; TEMP 98–99.7; O2SAT 92–99
[2016-09-13] MEDS: ACETAMINOPHEN/HYDROcodone 325 MG/5 MG TAB PO PRN ×5 (01:32→21:15)
[2016-09-13] MEDS: INSULIN ASPART SUPPLEMENTAL SCALE SQ SCH ×5 (01:38→21:00)
[2016-09-13] MEDS: PANTOPRAZOLE SOD 40 MG DELAYED RELEASE TAB PO SCH (04:39)
[2016-09-13] MEDS: ceFAZolin 2 GM PREMIX 50 ML IV SCH (04:40)
[2016-09-13 05:28] LABS: AUTOMATED NEUTROPHIL # 14.3 TH/MM3 (1.8-7.7); HEMATOCRIT 27.1 % (39.0-51.0); HEMO FLAGS DIFF FINAL; LYMPH % 6.2 % (9.0-44.0); LYMPHOCYTE # 1.1 TH/MM3 (1.0-4.8); MEAN CELL VOLUME 98.4 FL (80.0-100.0); MEAN CORPUSCULAR HEMOGLOBIN 33.8 PG (27.0-34.0); MEAN CORPUSCULAR HGB CONC 34.4 % (32.0-36.0); MONO % 10.7 % (0.0-8.0); NEUT % 83.1 % (16.0-70.0); PLATELET COUNT 107 TH/MM3 (150-450); RED BLOOD COUNT 2.76 MIL/MM3 (4.50-5.90); RED CELL DISTRIBUTION WIDTH 13.1 % (11.6-17.2); WHITE BLOOD COUNT 17.3 TH/MM3 (4.0-11.0)
[2016-09-13 05:42] LABS: BICARBONATE 28.5 MEQ/L (21.0-32.0); MAGNESIUM 2.1 MG/DL (1.5-2.5)
[2016-09-13] MEDS: RESP: ALBUTEROL 2.5 MG/IPRATROPIUM 0.5 MG NEB (SCH) NEB ×2 (07:46→12:54)
[2016-09-13] MEDS: GLIMEPIRIDE 1 MG TAB PO SCH (08:14)
[2016-09-13] MEDS: DOCUSATE SODIUM 100 MG CAP PO SCH ×4 (09:00→21:15)
[2016-09-13] MEDS: SODIUM CHLORIDE 0.9% FLUSH 10 ML FLUSH IV FLUSH SCH ×2 (09:00→21:00)
[2016-09-13] MEDS: ATORVASTATIN 80 MG TAB PO SCH (09:04)
[2016-09-13] MEDS: ASPIRIN 81 MG CHEW TAB PO SCH (09:05)
[2016-09-13] MEDS: POLYETHYLENE GLYCOL 17 GM PKG PO SCH (09:06)
[2016-09-13] MEDS: METOPROLOL TARTRATE 25 MG TAB PO SCH ×2 (09:06→21:14)
[2016-09-13] MEDS: metFORMIN HCL 500 MG TAB PO SCH ×2 (09:06→17:16)
[2016-09-13] MEDS: MAGNESIUM HYDROXIDE SUSP 30 ML CUP PO SCH (09:06)
[2016-09-13] MEDS: MULTIVITAMINS/MINERALS THERAPEUTIC TAB PO SCH (09:06)
[2016-09-13] MEDS: AMIODARONE 200 MG TAB PO SCH ×2 (09:06→21:16)
[2016-09-13] MEDS: CLOPIDOGREL 75 MG TAB PO SCH (09:07)
[2016-09-13] MEDS: NS 1000P @30 MLS/HR (KVO) IV SCH (10:52)
--- NOTE | 2016-09-13 11:04 | EKG ---
Date Performed: 09/12/2016 Time Performed: 04:03:48 PTAGE: 71 years EKG: Sinus rhythm . Possible inferior infarct - age undetermined Abnormal ECG PREVIOUS TRACING : 09/09/2016 11.38 DOCTOR: Yair Zimmerman Interpretating Date/Time 09/13/2016 11:02:27
--- NOTE | 2016-09-13 11:28 | PD.CAR.PN ---
CVT Progress Note CVT: POD #: 2 Subjective/Hospital Course: 71/ male hx of severe Aortic stenosis / worsening per echo, underwent cardiac cath by Dr Fierro found to have 3 vessel coronary artery disease / 70% distal LAD, 75% OM, 80% RCA admitted for surgery scheduled for PMH: aortic stenosis, HTN, HLP. DM EF 60% 09/09 pt remains pain free, no SOB. scheduled for surgery in am 09/13/16 No complaints. Doing very well. Objective: Vital Signs Date Time Temp Pulse Resp B/P Pulse Ox O2 Delivery O2 Flow Rate FiO2 09/13/16 10:00 68 09/13/16 09:11 18 09/13/16 09:00 82 09/13/16 08:15 99.7 83 18 126/65 97 09/13/16 08:00 80 09/13/16 07:47 94 Nasal Cannula 2.00 09/13/16 07:00 78 09/13/16 06:00 75 09/13/16 05:19 75 09/13/16 04:00 73 09/13/16 03:00 75 09/13/16 03:00 98.0 75 18 119/69 99 09/13/16 02:00 80 09/13/16 01:00 78 09/13/16 00:00 79 09/12/16 23:00 98.3 82 16 118/62 97 09/12/16 23:00 77 09/12/16 22:51 97 Nasal Cannula 5.00 09/12/16 22:00 82 09/12/16 21:00 92 09/12/16 20:00 90 09/12/16 19:00 89 09/12/16 19:00 98.0 92 18 162/69 99 Arterial Line 09/12/16 15:00 99.2 81 16 108/72 95 09/12/16 15:00 81 Labs: Laboratory Tests Test 09/13/16 04:30 White Blood Count 17.3 TH/MM3 (4.0-11.0) Red Blood Count 2.76 MIL/MM3 (4.50-5.90) Hemoglobin 9.3 GM/DL (13.0-17.0) Hematocrit 27.1 % (39.0-51.0) Mean Corpuscular Volume 98.4 FL (80.0-100.0) Mean Corpuscular Hemoglobin 33.8 PG (27.0-34.0) Mean Corpuscular Hemoglobin 34.4 % Concent (32.0-36.0) Red Cell Distribution Width 13.1 % (11.6-17.2) Platelet Count 107 TH/MM3 (150-450) Mean Platelet Volume 7.9 FL (7.0-11.0) Neutrophils (%) (Auto) 83.1 % (16.0-70.0) Lymphocytes (%) (Auto) 6.2 % (9.0-44.0) Monocytes (%) (Auto) 10.7 % (0.0-8.0) Eosinophils (%) (Auto) 0.0 % (0.0-4.0) Basophils (%) (Auto) 0.0 % (0.0-2.0) Neutrophils # (Auto) 14.3 TH/MM3 (1.8-7.7) Lymphocytes # (Auto) 1.1 TH/MM3 (1.0-4.8) Monocytes # (Auto) 1.9 TH/MM3 (0-0.9) Eosinophils # (Auto) 0.0 TH/MM3 (0-0.4) Basophils # (Auto) 0.0 TH/MM3 (0-0.2) CBC Comment DIFF FINAL Differential Comment Sodium Level 137 MEQ/L (136-145) Potassium Level 4.0 MEQ/L (3.5-5.1) Chloride Level 103 MEQ/L (98-107) Carbon Dioxide Level 28.5 MEQ/L (21.0-32.0) Anion Gap 6 MEQ/L (5-15) Blood Urea Nitrogen 13 MG/DL (7-18) Creatinine 0.87 MG/DL (0.60-1.30) Estimat Glomerular Filtration 87 ML/MIN (>89) Rate Random Glucose 90 MG/DL (74-106) Calcium Level 8.2 MG/DL (8.5-10.1) Magnesium Level 2.1 MG/DL (1.5-2.5) Result Diagram: 09/13/1642909/13/16429 Cardiovascular: RRR Telemetry: NSR Pulmonary: CTA GI/: NABS, NT Incision: dry and intact CT: 400ml/24 hrs Plan: Continue chest tubes one more day Encourage ambulation Diurese Stim BM Continue BB, statin, ASA (1) Coronary artery disease Plan: ASA, statin, BB for surgery in am (2) Diabetes mellitus Plan: on diabetic diet, insulin sliding scale (3) Hyperlipemia Plan: on statin (4) Hypertension Plan: controlled, restart ARB after surgery Rosy Larson MD Sep 13, 2016 11:28
[2016-09-13] MEDS: POTASSIUM CHLORIDE 10 MEQ CONTROLLED RELEASE TAB PO SCH ×2 (12:29→21:16)
[2016-09-13] MEDS: FUROSEMIDE 40 MG/4 ML VIAL IV PUSH SCH (17:16)
[2016-09-13] MEDS: SENNOSIDES 8.6 MG TAB PO SCH (21:16)
[2016-09-14] VITALS (25 sets, daily range): BP systolic 109–148; BP diastolic 52–83; PULSE 63–84; RESP 16–20; TEMP 97.8–102; O2SAT 92–96
[2016-09-14] MEDS: ACETAMINOPHEN/HYDROcodone 325 MG/5 MG TAB PO PRN ×5 (00:41→20:28)
[2016-09-14] MEDS: PANTOPRAZOLE SOD 40 MG DELAYED RELEASE TAB PO SCH (05:50)
[2016-09-14] MEDS: INSULIN ASPART SUPPLEMENTAL SCALE SQ SCH ×4 (05:50→20:29)
[2016-09-14] MEDS: RESP: ALBUTEROL 2.5 MG/IPRATROPIUM 0.5 MG NEB (SCH) NEB ×2 (07:37→13:31)
[2016-09-14] MEDS: POTASSIUM CHLORIDE 10 MEQ CONTROLLED RELEASE TAB PO SCH ×2 (08:40→20:28)
[2016-09-14] MEDS: AMIODARONE 200 MG TAB PO SCH ×2 (08:40→20:28)
[2016-09-14] MEDS: FUROSEMIDE 40 MG/4 ML VIAL IV PUSH SCH ×2 (08:40→17:08)
[2016-09-14] MEDS: DOCUSATE SODIUM 100 MG CAP PO SCH ×4 (08:40→21:00)
[2016-09-14] MEDS: MULTIVITAMINS/MINERALS THERAPEUTIC TAB PO SCH (08:40)
[2016-09-14] MEDS: ATORVASTATIN 80 MG TAB PO SCH (08:41)
[2016-09-14] MEDS: CLOPIDOGREL 75 MG TAB PO SCH (08:41)
[2016-09-14] MEDS: ASPIRIN 81 MG CHEW TAB PO SCH (08:41)
[2016-09-14] MEDS: METOPROLOL TARTRATE 25 MG TAB PO SCH ×2 (08:41→20:28)
[2016-09-14] MEDS: POLYETHYLENE GLYCOL 17 GM PKG PO SCH (08:42)
[2016-09-14] MEDS: metFORMIN HCL 500 MG TAB PO SCH ×2 (08:42→17:08)
[2016-09-14] MEDS: GLIMEPIRIDE 1 MG TAB PO SCH (08:42)
[2016-09-14] MEDS: MAGNESIUM HYDROXIDE SUSP 30 ML CUP PO SCH (08:42)
[2016-09-14] MEDS: SODIUM CHLORIDE 0.9% FLUSH 10 ML FLUSH IV FLUSH SCH ×2 (08:42→21:00)
--- NOTE | 2016-09-14 11:15 | PD.CAR.PN ---
CVT Progress Note CVT: POD #: 3 Subjective/Hospital Course: 71/ male hx of severe Aortic stenosis / worsening per echo, underwent cardiac cath by Dr Fierro found to have 3 vessel coronary artery disease / 70% distal LAD, 75% OM, 80% RCA admitted for surgery scheduled for PMH: aortic stenosis, HTN, HLP. DM EF 60% 09/09 pt remains pain free, no SOB. scheduled for surgery in am 09/13/16 No complaints. Doing very well. 09/14/16 No complaints, + BM Objective: Vital Signs Date Time Temp Pulse Resp B/P Pulse Ox O2 Delivery O2 Flow Rate FiO2 09/14/16 10:03 65 09/14/16 09:54 18 09/14/16 09:02 73 09/14/16 08:14 74 09/14/16 07:35 93 21 09/14/16 07:25 69 09/14/16 07:25 98.0 75 18 133/64 94 09/14/16 06:00 71 09/14/16 05:00 67 09/14/16 04:00 68 09/14/16 03:00 99.0 71 16 112/62 92 09/14/16 03:00 69 09/14/16 02:00 69 09/14/16 01:02 75 09/14/16 00:00 76 09/13/16 23:00 75 09/13/16 23:00 99.0 77 16 114/59 93 09/13/16 22:00 80 09/13/16 21:00 76 09/13/16 20:00 92 21 09/13/16 20:00 77 09/13/16 19:00 99.6 77 20 131/60 93 09/13/16 19:00 79 09/13/16 18:01 78 09/13/16 17:55 83 09/13/16 16:07 75 09/13/16 15:33 98.3 83 19 126/65 96 09/13/16 15:33 80 09/13/16 15:33 94 Room Air 09/13/16 14:11 77 09/13/16 13:12 75 09/13/16 12:46 74 09/13/16 11:30 93 Nasal Cannula 1.00 09/13/16 11:30 98.1 71 18 108/60 96 Result Diagram: 09/13/160 09/13/16 0430 Cardiovascular: RRR Telemetry: NSR Pulmonary: CTA GI/: NABS, NT Incision: dry and intact Plan: D/C chest tubes Encourage ambulation Diurese Possible D/C tomorrow (1) Coronary artery disease Plan: ASA, statin, BB for surgery in am (2) Diabetes mellitus Plan: on diabetic diet, insulin sliding scale (3) Hyperlipemia Plan: on statin (4) Hypertension Plan: controlled, restart ARB after surgery Rosy Larson MD Sep 14, 2016 11:15
[2016-09-14] MEDS: NS 1000P @30 MLS/HR (KVO) IV SCH (11:30)
[2016-09-14] MEDS: SENNOSIDES 8.6 MG TAB PO SCH (20:29)
[2016-09-15] VITALS (27 sets, daily range): BP systolic 114–158; BP diastolic 63–86; PULSE 59–78; RESP 16–18; TEMP 98–100.4; O2SAT 93–97
[2016-09-15] MEDS: PANTOPRAZOLE SOD 40 MG DELAYED RELEASE TAB PO SCH (05:22)
[2016-09-15] MEDS: ACETAMINOPHEN/HYDROcodone 325 MG/5 MG TAB PO PRN ×2 (05:22→11:31)
[2016-09-15] MEDS: INSULIN ASPART SUPPLEMENTAL SCALE SQ SCH ×4 (06:08→22:21)
[2016-09-15] MEDS: POTASSIUM CHLORIDE 10 MEQ CONTROLLED RELEASE TAB PO SCH ×2 (08:45→22:14)
[2016-09-15] MEDS: ATORVASTATIN 80 MG TAB PO SCH (08:45)
[2016-09-15] MEDS: DOCUSATE SODIUM 100 MG CAP PO SCH ×3 (08:46→22:13)
[2016-09-15] MEDS: ASPIRIN 81 MG CHEW TAB PO SCH (08:46)
[2016-09-15] MEDS: METOPROLOL TARTRATE 25 MG TAB PO SCH ×2 (08:47→22:12)
[2016-09-15] MEDS: AMIODARONE 200 MG TAB PO SCH ×2 (08:47→22:13)
[2016-09-15] MEDS: GLIMEPIRIDE 1 MG TAB PO SCH (08:47)
[2016-09-15] MEDS: MULTIVITAMINS/MINERALS THERAPEUTIC TAB PO SCH (08:47)
[2016-09-15] MEDS: SODIUM CHLORIDE 0.9% FLUSH 10 ML FLUSH IV FLUSH SCH ×2 (08:48→21:00)
[2016-09-15] MEDS: FUROSEMIDE 40 MG/4 ML VIAL IV PUSH SCH ×2 (08:48→17:13)
[2016-09-15] MEDS: MAGNESIUM HYDROXIDE SUSP 30 ML CUP PO SCH (08:49)
[2016-09-15] MEDS: POLYETHYLENE GLYCOL 17 GM PKG PO SCH (08:49)
[2016-09-15] MEDS: metFORMIN HCL 500 MG TAB PO SCH ×2 (08:49→17:13)
--- NOTE | 2016-09-15 10:10 | RADRPT ---
EXAM DATE/TIME: 09/15/2016 09:39 [facility] COMPARISON: CHEST SINGLE AP, September 12, 2016, 3:37. INDICATIONS : Shortness of breath. Pain when he coughs. MEDICAL HISTORY : Hypertension. Diabetes. SURGICAL HISTORY : CABG. ENCOUNTER: Subsequent ACUITY: 1 week PAIN SCORE: 3/10 LOCATION: Bilateral chest FINDINGS: Sternal wires from previous median sternotomy are noted. Heart is enlarged. Mild interstitial edema is present. Minimal blunting of [id number] costophrenic sulci are noted, worse on the left than the right. CONCLUSION: 1. Increasing bibasilar parenchymal changes. 2. Probable trace of fluid on the left. Art Vivar MD FACR on September 15, 2016 at 10:04 Board Certified Radiologist. This report was verified electronically.
[2016-09-15 10:59] LABS: BASOPHIL % 0.2 % (0.0-2.0); EOSINOPHIL # 0.2 TH/MM3 (0-0.4); EOSINOPHIL % 1.5 % (0.0-4.0); HEMATOCRIT 30.7 % (39.0-51.0); HEMO FLAGS DIFF FINAL; LYMPH % 8.9 % (9.0-44.0); MEAN CELL VOLUME 99.7 FL (80.0-100.0); MEAN CORPUSCULAR HEMOGLOBIN 32.8 PG (27.0-34.0); MEAN CORPUSCULAR HGB CONC 32.9 % (32.0-36.0); MONO % 10.9 % (0.0-8.0); NEUT % 78.5 % (16.0-70.0); PLATELET COUNT 154 TH/MM3 (150-450); RED BLOOD COUNT 3.08 MIL/MM3 (4.50-5.90); RED CELL DISTRIBUTION WIDTH 13.4 % (11.6-17.2); WHITE BLOOD COUNT 11.5 TH/MM3 (4.0-11.0)
[2016-09-15] MEDS: CLOPIDOGREL 75 MG TAB PO SCH (11:15)
[2016-09-15] MEDS: NS 1000P @30 MLS/HR (KVO) IV SCH (11:30)
[2016-09-15 12:35] LABS: BLOOD, URINE NEG (NEG); COMMENT (UR) CULT NOT INDICATED; CULTURE IF INDICATED CULT NOT INDICATED; GLUCOSE,URINE NEG (NEG); KETONE, URINE NEG (NEG); MUCUS URINE FEW /lpf (OCC); NITRITE,URINE NEG (NEG); URINE COLOR LIGHT-YELLOW (YELLW/STRAW)
--- NOTE | 2016-09-15 13:56 | PD.CAR.PN ---
CVT Progress Note CVT: POD #: 4 Subjective/Hospital Course: 71/ male hx of severe Aortic stenosis / worsening per echo, underwent cardiac cath by Dr Fierro found to have 3 vessel coronary artery disease / 70% distal LAD, 75% OM, 80% RCA admitted for surgery scheduled for PMH: aortic stenosis, HTN, HLP. DM EF 60% 09/09 pt remains pain free, no SOB. scheduled for surgery in am 09/13/16 No complaints. Doing very well. 09/14/16 No complaints, + BM 09/15 + fever 102 last pm had some congestion CXR noted, + bibasilar atelectasis/ volume overload on diuretics , Resp tx reordered / nebs/ ezpap ambulate / OOB CM to eval for HHC Objective: GENERAL: SKIN: Warm and dry./ prevena to chest , incision intact left leg HEAD: Normocephalic. EYES: No scleral icterus. No injection or drainage. NECK: Supple, trachea midline. No JVD or lymphadenopathy. CARDIOVASCULAR: Regular rate and rhythm without murmurs, gallops, or rubs. RESPIRATORY: diminished in bases, some coarse breath sounds Breath sounds equal bilaterally. No accessory muscle use. GASTROINTESTINAL: Abdomen soft, non-tender, nondistended. MUSCULOSKELETAL: No cyanosis, or edema. BACK: Nontender without obvious deformity. No CVA tenderness. Vital Signs Date Time Temp Pulse Resp B/P Pulse Ox O2 Delivery O2 Flow Rate FiO2 09/15/16 13:03 59 09/15/16 12:00 60 09/15/16 11:00 62 09/15/16 11:00 98.2 64 18 118/66 97 09/15/16 11:00 Room Air 09/15/16 10:00 66 09/15/16 09:28 95 21 09/15/16 09:00 66 09/15/16 08:00 64 09/15/16 07:00 Room Air 09/15/16 07:00 98.0 66 17 158/86 96 09/15/16 07:00 60 09/15/16 06:22 18 09/15/16 06:00 60 09/15/16 05:00 67 09/15/16 04:00 63 09/15/16 03:00 96 Room Air 09/15/16 03:00 66 09/15/16 03:00 99.8 66 18 135/75 96 09/15/16 02:00 63 09/15/16 01:00 60 09/15/16 00:00 64 09/14/16 23:00 100.0 66 20 129/73 95 09/14/16 23:00 95 Room Air 09/14/16 23:00 63 09/14/16 22:00 63 09/14/16 21:00 68 09/14/16 21:00 100.0 09/14/16 20:00 101.1 09/14/16 20:00 78 09/14/16 19:00 102.0 82 20 135/66 92 09/14/16 19:00 66 09/14/16 19:00 92 Room Air 09/14/16 18:17 84 09/14/16 17:04 70 09/14/16 16:36 72 09/14/16 15:13 66 09/14/16 15:13 97.8 70 18 148/83 96 09/14/16 14:14 69 Labs: Laboratory Tests Test 09/15/16 09/15/16 10:00 11:52 White Blood Count 11.5 TH/MM3 (4.0-11.0) Red Blood Count 3.08 MIL/MM3 (4.50-5.90) Hemoglobin 10.1 GM/DL (13.0-17.0) Hematocrit 30.7 % (39.0-51.0) Mean Corpuscular Volume 99.7 FL (80.0-100.0) Mean Corpuscular Hemoglobin 32.8 PG (27.0-34.0) Mean Corpuscular Hemoglobin 32.9 % Concent (32.0-36.0) Red Cell Distribution Width 13.4 % (11.6-17.2) Platelet Count 154 TH/MM3 (150-450) Mean Platelet Volume 8.4 FL (7.0-11.0) Neutrophils (%) (Auto) 78.5 % (16.0-70.0) Lymphocytes (%) (Auto) 8.9 % (9.0-44.0) Monocytes (%) (Auto) 10.9 % (0.0-8.0) Eosinophils (%) (Auto) 1.5 % (0.0-4.0) Basophils (%) (Auto) 0.2 % (0.0-2.0) Neutrophils # (Auto) 9.0 TH/MM3 (1.8-7.7) Lymphocytes # (Auto) 1.0 TH/MM3 (1.0-4.8) Monocytes # (Auto) 1.2 TH/MM3 (0-0.9) Eosinophils # (Auto) 0.2 TH/MM3 (0-0.4) Basophils # (Auto) 0.0 TH/MM3 (0-0.2) CBC Comment DIFF FINAL Differential Comment Urine Color LIGHT-YELLOW (YELLW/STRAW) Urine Turbidity CLEAR (CLEAR) Urine pH 8.0 (5.0-8.5) Urine Specific [place] 1.006 (1.002-1.035) Urine Protein NEG mg/dL (NEG-TRACE) Urine Glucose (UA) NEG mg/dL (NEG) Urine Ketones NEG mg/dL (NEG) Urine Occult Blood NEG (NEG) Urine Nitrite NEG (NEG) Urine Bilirubin NEG (NEG) Urine Urobilinogen LESS THAN 2.0 MG/DL (LESS THAN 2.0) Urine Leukocyte Esterase NEG (NEG) Urine RBC 4 /hpf (0-3) Urine WBC LESS THAN 1 /hpf (0-5) Urine Mucus FEW /lpf (OCC) Microscopic Urinalysis Comment CULT NOT INDICATED Result Diagram: 09/15/16 1000 09/13/16 0430 Cardiovascular: NSR (1) Coronary artery disease Plan: ASA, statin, BB continue diuresis + BM reorder nebs/ breathing tx OOB ambulate (2) Diabetes mellitus Plan: on diabetic diet, insulin sliding scale (3) Hyperlipemia Plan: on statin (4) Hypertension Plan: controlled, restart ARB after surgery (5) fever/ leukocytosis Plan: bilateral atelectasis noted on CXR aggressive pulm toileting UA - BC pending Jazz Morrow Sep 15, 2016 13:56
--- NOTE | 2016-09-15 13:59 | HHI.FF ---
Face to Face Verification Diagnosis: (1) S/P CABG x 2 (2) Coronary artery disease (3) Diabetes mellitus (4) Hyperlipemia (5) fever/ leukocytosis (6) Hypertension Physical Therapy Order: Evaluate and Treat Home Health Nursing Order: Signs/symptoms of disease process Diabetic education Wound care and dressing changes Instructions: Heart and Vascular Surgery patients *Special attention to sternal dressing Mandatory frequency Assess and evaluation, 4 days in a row The next week 3X week 2 times a week for 4 weeks 1 time a week for 5 weeks Schedule Heart and Vascular patients for full 60 day certification period Initial visit Review Open Heart Surgery Discharge Instructions (Sternal precautions, Activity, Elastic hose, Incision care, Driving, Incentive spirometry, Smoking, [place], Work and other) Need Betadine to paint incision Medication reconciliation Importance of follow up care/ check on appointments Make calendar record temperature daily When to call [facility] nurse, review instructions, phone list Incentive Spirometry, demonstration Visit 1- Begin discharge instruction for patient family and/ or caregiver using teach back method- Signs and symptoms of infection Disease characteristics Medicines and side effects Foods and nutrition/ appetite Infection control/ hand washing/ hygiene Visit 2- Continue teaching Discharge instructions- include additional information on smoking cessation , sternal dressing (sternal vac) Visit 3- Continue teaching- Cough and deep breathing, incision monitoring. Choose my plate Visit 4- Continue teaching- Discuss limitations Discuss how they are feeling Discuss progress toward goals Remaining visits- continue teaching and monitoring Incentive spirometry Q1 hr x 10, while awake, also use acapella device hourly whole awake Sternal Breast Bone Precautions: NO pushing or pulling, ( pt must use sternal pillow to support chest with all activities and with coughing ( takes up to 3 months breast bone to heal ) Daily incision care: ok to shower daily, no tub bath. Wash all incisions with liquid dial soap, clean wash cloth to each site, rinse and pat dry. Observe for any signs of infection, such as drainage which is dark yellow, myers, green or foul smelling. Immediately report to the surgeon any drainage from the chest incision, or legs, and for any abnormal drainage from the chest tube sites. Notify surgeon if any temp >101.5 degrees F. When specialty dressing removed/ or if you do not have one, continue to shower daily as above, then rinse and pat incision dry and paint with betadine daily x 5 days. Allow steri strips to fall off if you have any. Avoid lotions, creams, salves, oils, etc. for the first month F/U appointment: as per MO instructions: PCP in 2 weeks, CV surgeon 2 weeks, Email Operations Manager 3-4 weeks For any questions regarding incisions/ dressing / meds / post op care or above Symptoms, Thursday 8am-5pm Heart & Vascular Surgery Office ( Dr. Thomson & Dr. Larson), After Hours / Nights (5pm -8am) Weekends and Holidays Please call [facility] ([facility]) Charge Nurse I have seen patient Isaac Junior Jr Stevenson on 09/15/16. My clinical findings support the need for the requested home health care services because: Patient has SOB Deconditioned w/ increased weakness I certify that my clinical findings support that this patient is homebound because: Post-op weakness Jazz Morrow Sep 15, 2016 13:59
[2016-09-15] MEDS ORDERED: RESP: ALBUTEROL 2.5 MG/IPRATROPIUM 0.5 MG NEB (PRN) NEB (14:00)
[2016-09-15] MEDS ORDERED: MISC-163 (14:03)
[2016-09-15] MEDS ORDERED: WALKER WHEELS/F1 MIS (14:03)
--- NOTE | 2016-09-15 14:07 | PD.CARD.PN ---
Subjective Subjective Remarks Patient had a fever yesterday. No obvious cause. Feeling better today. Hemodynamically stable. (Jessica Weller) Objective Vital Signs / I&O Vital Signs Date Time Temp Pulse Resp B/P Pulse Ox O2 Delivery O2 Flow Rate FiO2 09/15/16 13:03 59 09/15/16 12:00 60 09/15/16 11:00 62 09/15/16 11:00 98.2 64 18 118/66 97 09/15/16 11:00 Room Air 09/15/16 10:00 66 09/15/16 09:28 95 21 09/15/16 09:00 66 09/15/16 08:00 64 09/15/16 07:00 Room Air 09/15/16 07:00 98.0 66 17 158/86 96 09/15/16 07:00 60 09/15/16 06:22 18 09/15/16 06:00 60 09/15/16 05:00 67 09/15/16 04:00 63 09/15/16 03:00 96 Room Air 09/15/16 03:00 66 09/15/16 03:00 99.8 66 18 135/75 96 09/15/16 02:00 63 09/15/16 01:00 60 09/15/16 00:00 64 09/14/16 23:00 100.0 66 20 129/73 95 09/14/16 23:00 95 Room Air 09/14/16 23:00 63 09/14/16 22:00 63 09/14/16 21:00 68 09/14/16 21:00 100.0 09/14/16 20:00 101.1 09/14/16 20:00 78 09/14/16 19:00 102.0 82 20 135/66 92 09/14/16 19:00 66 09/14/16 19:00 92 Room Air 09/14/16 18:17 84 09/14/16 17:04 70 09/14/16 16:36 72 09/14/16 15:13 66 09/14/16 15:13 97.8 70 18 148/83 96 09/14/16 14:14 69 I/O 09/14/16 09/14/16 09/14/16 09/15/16 09/15/16 09/15/16 07:00 15:00 23:00 07:00 15:00 23:00 Intake Total 837 ml 720 ml 480 ml Output Total 590 ml 851 ml 1025 ml Balance 247 ml -131 ml -545 ml Intake Oral 837 ml 720 ml 480 ml Output Urine Total 500 ml 850 ml 1025 ml Stool Total 1 ml Chest Tube Drainage Total 90 ml # Voids 1 # Bowel Movements 0 0 Physical Exam GENERAL: Sitting up in the chair, at bedside SKIN: Warm and dry. HEAD: Normocephalic. EYES: No scleral icterus. No injection or drainage. NECK: Supple, trachea midline. Right IJ central line CARDIOVASCULAR: Regular rate and rhythm. Chest incision dressing C/D/I RESPIRATORY: Breath sounds equal bilaterally. No accessory muscle use. GASTROINTESTINAL: Abdomen soft, non-tender, nondistended. MUSCULOSKELETAL: No cyanosis, BL lower extremity edema BACK: Nontender without obvious deformity. Laboratory Laboratory Tests Test 09/15/16 09/15/16 10:00 11:52 White Blood Count 11.5 TH/MM3 Red Blood Count 3.08 MIL/MM3 Hemoglobin 10.1 GM/DL Hematocrit 30.7 % Mean Corpuscular Volume 99.7 FL Mean Corpuscular Hemoglobin 32.8 PG Mean Corpuscular Hemoglobin 32.9 % Concent Red Cell Distribution Width 13.4 % Platelet Count 154 TH/MM3 Mean Platelet Volume 8.4 FL Neutrophils (%) (Auto) 78.5 % Lymphocytes (%) (Auto) 8.9 % Monocytes (%) (Auto) 10.9 % Eosinophils (%) (Auto) 1.5 % Basophils (%) (Auto) 0.2 % Neutrophils # (Auto) 9.0 TH/MM3 Lymphocytes # (Auto) 1.0 TH/MM3 Monocytes # (Auto) 1.2 TH/MM3 Eosinophils # (Auto) 0.2 TH/MM3 Basophils # (Auto) 0.0 TH/MM3 CBC Comment DIFF FINAL Differential Comment Urine Color LIGHT-YELLOW Urine Turbidity CLEAR Urine pH 8.0 Urine Specific [place] 1.006 Urine Protein NEG mg/dL Urine Glucose (UA) NEG mg/dL Urine Ketones NEG mg/dL Urine Occult Blood NEG Urine Nitrite NEG Urine Bilirubin NEG Urine Urobilinogen LESS THAN 2.0 MG/DL Urine Leukocyte Esterase NEG Urine RBC 4 /hpf Urine WBC LESS THAN 1 /hpf Urine Mucus FEW /lpf Microscopic Urinalysis Comment CULT NOT INDICATED (Jessica Weller) Assessment and Plan Problem List: (1) Coronary artery disease (2) Diabetes mellitus (3) Hyperlipemia (4) Hypertension (5) fever/ leukocytosis Assessment and Plan Assessment: S/p AVR and CABG with Dr. Thomson (09/11/2016) Off-pump Coronary Artery Bypass Grafting x 2 with left internal mammary artery (JOHNSON) to left anterior descending (LAD), reverse saphenous vein graft to LPDA and Aortic Valve Replacement with 23mm Roe Intuity Elite Tissue Valve S/p cardiac cath 09/09/2016 evidence ASHD and severe . HTN HLD DM Smoking history Post operative fever Plan: Check bilateral lower extremity doppler for cause of post op fever Will followup outpatient after cleared by Dr Thomson Assessment and plan discussed with Dr. Fierro. (Jessica Weller) Assessment and Plan The exam, history, and the medical decision-making described in the above note were completed with the assistance of the mid-level provider. I reviewed and agree with the findings presented. I attest that I had a [id number] encounter with the patient on the same day, and personally performed and documented my assessment and findings in the medical record, Doing well post op , will follow with you. (Zay Fierro MD) Jessica Weller Sep 15, 2016 14:07 Zay Fierro MD Sep 15, 2016 14:24
[2016-09-15] MEDS: RESP: ALBUTEROL 2.5 MG/IPRATROPIUM 0.5 MG NEB (SCH) NEB (21:41)
[2016-09-15] MEDS: SENNOSIDES 8.6 MG TAB PO SCH (22:12)
[2016-09-16] VITALS (16 sets, daily range): BP systolic 121–131; BP diastolic 71–73; PULSE 56–68; RESP 16–17; TEMP 98.1–98.5; O2SAT 92–97
[2016-09-16 06:03] LABS: AUTOMATED NEUTROPHIL # 6.4 TH/MM3 (1.8-7.7); BASOPHIL % 0.1 % (0.0-2.0); EOSINOPHIL # 0.2 TH/MM3 (0-0.4); HEMATOCRIT 26.5 % (39.0-51.0); HEMO FLAGS DIFF FINAL; LYMPH % 14.7 % (9.0-44.0); LYMPHOCYTE # 1.3 TH/MM3 (1.0-4.8); MEAN CELL VOLUME 98.2 FL (80.0-100.0); MEAN CORPUSCULAR HEMOGLOBIN 34.2 PG (27.0-34.0); MEAN CORPUSCULAR HGB CONC 34.9 % (32.0-36.0); MONO % 12.9 % (0.0-8.0); NEUT % 70.3 % (16.0-70.0); PLATELET COUNT 162 TH/MM3 (150-450); RED CELL DISTRIBUTION WIDTH 13.5 % (11.6-17.2); WHITE BLOOD COUNT 9.1 TH/MM3 (4.0-11.0)
[2016-09-16] MEDS: INSULIN ASPART SUPPLEMENTAL SCALE SQ SCH ×2 (06:17→11:00)
[2016-09-16] MEDS: PANTOPRAZOLE SOD 40 MG DELAYED RELEASE TAB PO SCH (06:17)
[2016-09-16 06:25] LABS: BICARBONATE 30.3 MEQ/L (21.0-32.0); MAGNESIUM 2.4 MG/DL (1.5-2.5); POTASSIUM 3.8 MEQ/L (3.5-5.1)
[2016-09-16] MEDS: RESP: ALBUTEROL 2.5 MG/IPRATROPIUM 0.5 MG NEB (SCH) NEB ×2 (07:31→13:42)
[2016-09-16] MEDS: POLYETHYLENE GLYCOL 17 GM PKG PO SCH (07:49)
[2016-09-16] MEDS: MAGNESIUM HYDROXIDE SUSP 30 ML CUP PO SCH (07:50)
[2016-09-16] MEDS: ATORVASTATIN 80 MG TAB PO SCH (07:50)
[2016-09-16] MEDS: DOCUSATE SODIUM 100 MG CAP PO SCH (07:50)
[2016-09-16] MEDS: MULTIVITAMINS/MINERALS THERAPEUTIC TAB PO SCH (07:50)
[2016-09-16] MEDS: CLOPIDOGREL 75 MG TAB PO SCH (07:51)
[2016-09-16] MEDS: FUROSEMIDE 40 MG/4 ML VIAL IV PUSH SCH (07:51)
[2016-09-16] MEDS: POTASSIUM CHLORIDE 10 MEQ CONTROLLED RELEASE TAB PO SCH (07:51)
[2016-09-16] MEDS: metFORMIN HCL 500 MG TAB PO SCH (07:51)
[2016-09-16] MEDS: AMIODARONE 200 MG TAB PO SCH (07:52)
[2016-09-16] MEDS: GLIMEPIRIDE 1 MG TAB PO SCH (07:53)
[2016-09-16] MEDS: METOPROLOL TARTRATE 25 MG TAB PO SCH (07:53)
[2016-09-16] MEDS: ASPIRIN 81 MG CHEW TAB PO SCH (07:53)
[2016-09-16] MEDS: SODIUM CHLORIDE 0.9% FLUSH 10 ML FLUSH IV FLUSH SCH (07:54)
--- NOTE | 2016-09-16 09:09 | RSPPFT ---
DATE OF PROCEDURE: 09/09/16 COMMENTS: Spirometry demonstrates an FEV1 of 2.7 at 196% of predicted, FVC of 3.9 at 178%, FEF 25-75 is 230%. Flow volume loops appear unremarkable. IMPRESSION: 1. Essentially normal pulmonary function study.
[2016-09-16] MEDS ORDERED: FLUTICASONE PROPIONATE 50 MCG/ACT 16 GM NASAL SPRAY NASAL SCH (11:00)
[2016-09-16] MEDS ORDERED: POTASSIUM CHLORIDE 20 MEQ CONTROLLED RELEASE TAB PO ONE (11:00)
--- NOTE | 2016-09-16 11:01 | PD.CAR.PN ---
CVT Progress Note CVT: POD #: 5 Subjective/Hospital Course: 71/ male hx of severe Aortic stenosis / worsening per echo, underwent cardiac cath by Dr Fierro found to have 3 vessel coronary artery disease / 70% distal LAD, 75% OM, 80% RCA admitted for surgery scheduled for PMH: aortic stenosis, HTN, HLP. DM EF 60% 09/09 pt remains pain free, no SOB. scheduled for surgery in am 09/13/16 No complaints. Doing very well. 09/14/16 No complaints, + BM 09/15 + fever 102 last pm had some congestion CXR noted, + bibasilar atelectasis/ volume overload on diuretics , Resp tx reordered / nebs/ ezpap ambulate / OOB CM to eval for HHC 09/16 no further temps, WBC count 9.1 no sleeping well wants to go home await results of blood cultures / if neg then ok to dc Objective: Vital Signs Date Time Temp Pulse Resp B/P Pulse Ox O2 Delivery O2 Flow Rate FiO2 09/16/16 10:07 61 09/16/16 09:02 68 09/16/16 08:00 60 09/16/16 07:32 94 21 09/16/16 07:00 98.5 63 16 131/71 92 09/16/16 07:00 58 09/16/16 06:00 58 09/16/16 05:00 59 09/16/16 04:00 56 09/16/16 03:00 58 09/16/16 03:00 98.1 60 17 125/73 97 09/16/16 02:00 56 09/16/16 01:00 59 09/16/16 00:00 57 09/15/16 23:00 99.0 77 16 134/66 95 09/15/16 23:00 61 09/15/16 22:00 78 09/15/16 21:42 93 09/15/16 21:00 66 09/15/16 20:00 70 09/15/16 19:00 100.4 70 16 140/71 93 09/15/16 19:00 74 09/15/16 18:00 66 09/15/16 17:00 66 09/15/16 16:00 62 09/15/16 15:01 Room Air 09/15/16 15:01 99.0 63 18 114/63 96 09/15/16 15:00 62 09/15/16 14:00 59 09/15/16 13:03 59 09/15/16 12:00 60 09/15/16 11:00 62 09/15/16 11:00 98.2 64 18 118/66 97 09/15/16 11:00 Room Air Labs: Laboratory Tests Test 09/16/16 05:30 White Blood Count 9.1 TH/MM3 (4.0-11.0) Red Blood Count 2.70 MIL/MM3 (4.50-5.90) Hemoglobin 9.2 GM/DL (13.0-17.0) Hematocrit 26.5 % (39.0-51.0) Mean Corpuscular Volume 98.2 FL (80.0-100.0) Mean Corpuscular Hemoglobin 34.2 PG (27.0-34.0) Mean Corpuscular Hemoglobin 34.9 % Concent (32.0-36.0) Red Cell Distribution Width 13.5 % (11.6-17.2) Platelet Count 162 TH/MM3 (150-450) Mean Platelet Volume 8.0 FL (7.0-11.0) Neutrophils (%) (Auto) 70.3 % (16.0-70.0) Lymphocytes (%) (Auto) 14.7 % (9.0-44.0) Monocytes (%) (Auto) 12.9 % (0.0-8.0) Eosinophils (%) (Auto) 2.0 % (0.0-4.0) Basophils (%) (Auto) 0.1 % (0.0-2.0) Neutrophils # (Auto) 6.4 TH/MM3 (1.8-7.7) Lymphocytes # (Auto) 1.3 TH/MM3 (1.0-4.8) Monocytes # (Auto) 1.2 TH/MM3 (0-0.9) Eosinophils # (Auto) 0.2 TH/MM3 (0-0.4) Basophils # (Auto) 0.0 TH/MM3 (0-0.2) CBC Comment DIFF FINAL Differential Comment Sodium Level 140 MEQ/L (136-145) Potassium Level 3.8 MEQ/L (3.5-5.1) Chloride Level 103 MEQ/L (98-107) Carbon Dioxide Level 30.3 MEQ/L (21.0-32.0) Anion Gap 7 MEQ/L (5-15) Blood Urea Nitrogen 15 MG/DL (7-18) Creatinine 0.97 MG/DL (0.60-1.30) Estimat Glomerular Filtration 77 ML/MIN (>89) Rate Random Glucose 140 MG/DL (74-106) Calcium Level 7.9 MG/DL (8.5-10.1) Magnesium Level 2.4 MG/DL (1.5-2.5) Result Diagram: 09/16/1652909/16/16529 (1) Coronary artery disease Plan: ASA, statin, BB continue diuresis + BM reorder nebs/ breathing tx OOB ambulate (2) Diabetes mellitus Plan: on diabetic diet, insulin sliding scale (3) Hyperlipemia Plan: on statin (4) Hypertension Plan: controlled, restart ARB after surgery (5) fever/ leukocytosis Plan: bilateral atelectasis noted on CXR aggressive pulm toileting UA - BC pending / if neg , will dc home Jazz Morrow Sep 16, 2016 11:01
[2016-09-16] MEDS: NS 1000P @30 MLS/HR (KVO) IV SCH (11:30)
[2016-09-16] MEDS ORDERED: POTA20TA5 PO (12:59)
[2016-09-16] MEDS ORDERED: PLAV75TA29 PO (12:59)
[2016-09-16] MEDS ORDERED: DOCU1CAP39 PO (12:59)
[2016-09-16] MEDS ORDERED: THERM PO (12:59)
[2016-09-16] MEDS ORDERED: FURO40TA PO (12:59)
[2016-09-16] MEDS ORDERED: AMIO200T PO (12:59)
[2016-09-16] MEDS ORDERED: FLUT50SP NASAL (12:59)
[2016-09-16] MEDS ORDERED: METO25TA3 PO (12:59)
--- NOTE | 2016-09-16 13:09 | HHI.DS ---
Discharge Summary Admission Date Sep 09, 2016 at 17:02 Discharge Date: Sep 16, 2016 Admitting Diagnosis severe aortic stenosis / coronary artery disease (1) Coronary artery disease Diagnosis: Principal (2) Diabetes mellitus Diagnosis: Principal (3) Hyperlipemia (4) Hypertension Diagnosis: Principal (5) S/P CABG x 2 Diagnosis: Secondary (6) S/P AVR (aortic valve replacement) Diagnosis: Secondary Procedures 09/11 1. Off-pump Coronary Artery Bypass Grafting x 2 with left internal mammary artery (JOHNSON) to left anterior descending (LAD), reverse saphenous vein graft to LPDA 2. Aortic Valve Replacement with 23mm Roe Intuity Elite Tissue Valve 3. Left Leg Endoscopic Vein [place] 4. Intraoperative Vein Mapping. Brief History 71/ male hx of severe Aortic stenosis / worsening per echo, underwent cardiac cath by Dr Fierro found to have 3 vessel coronary artery disease / 70% distal LAD, 75% OM, 80% RCA admitted for surgery scheduled for PMH: aortic stenosis, HTN, HLP. DM EF 60% CBC/BMP: 09/16/16 0530 09/16/16 0530 Significant Findings Laboratory Tests Test 09/15/16 09/15/16 09/16/16 10:00 11:52 05:30 White Blood Count 11.5 TH/MM3 (4.0-11.0) Red Blood Count 3.08 MIL/MM3 2.70 MIL/MM3 (4.50-5.90) (4.50-5.90) Hemoglobin 10.1 GM/DL 9.2 GM/DL (13.0-17.0) (13.0-17.0) Hematocrit 30.7 % 26.5 % (39.0-51.0) (39.0-51.0) Neutrophils (%) (Auto) 78.5 % 70.3 % (16.0-70.0) (16.0-70.0) Lymphocytes (%) (Auto) 8.9 % (9.0-44.0) Monocytes (%) (Auto) 10.9 % 12.9 % (0.0-8.0) (0.0-8.0) Neutrophils # (Auto) 9.0 TH/MM3 (1.8-7.7) Monocytes # (Auto) 1.2 TH/MM3 1.2 TH/MM3 (0-0.9) (0-0.9) Urine RBC 4 /hpf (0-3) Urine Mucus FEW /lpf (OCC) Mean Corpuscular Hemoglobin 34.2 PG (27.0-34.0) Estimat Glomerular Filtration 77 ML/MIN (>89) Rate Random Glucose 140 MG/DL (74-106) Calcium Level 7.9 MG/DL (8.5-10.1) Imaging Last Impressions Chest X-Ray 09/15/16 0000 Signed Impressions: Service Date/Time: Thursday, September 15, 2016 09:39 - CONCLUSION: 1. Increasing bibasilar parenchymal changes. 2. Probable trace of fluid on the left. Art Vivar MD FACR Lower Extremity Ultrasound 09/09/16 0000 Signed Impressions: Service Date/Time: Friday, September 09, 2016 18:53 - CONCLUSION: Normal examination. Felipe Bello MD Carotid Artery Ultrasound 09/09/16 0000 Signed Impressions: Service Date/Time: Friday, September 09, 2016 18:32 - CONCLUSION: No evidence for hemodynamically significant stenosis. Felipe Bello MD PE at Discharge GENERAL: SKIN: Warm and dry.incision intact and well approximated to chest / left leg incision intact, still has some ecchymosis left inner thigh/ improving HEAD: Normocephalic. EYES: No scleral icterus. No injection or drainage. NECK: Supple, trachea midline. No JVD or lymphadenopathy. CARDIOVASCULAR: Regular rate and rhythm without murmurs, gallops, or rubs. RESPIRATORY: Breath sounds equal bilaterally. No accessory muscle use. GASTROINTESTINAL: Abdomen soft, non-tender, nondistended. MUSCULOSKELETAL: No cyanosis, or edema. BACK: Nontender without obvious deformity. No CVA tenderness. Hospital Course 09/09 pt remains pain free, no SOB. scheduled for surgery in am 09/13/16 No complaints. Doing very well. 09/14/16 No complaints, + BM 09/15 + fever 102 last pm had some congestion CXR noted, + bibasilar atelectasis/ volume overload on diuretics , Resp tx reordered / nebs/ ezpap ambulate / OOB CM to eval for C 09/16 no further temps, WBC count 9.1 no sleeping well wants to go home await results of blood cultures / if neg then ok to dc addendum BC neg, no further fevers, leukocytosis resolved will dc home , continue IS and acapella at home Pt Condition on Discharge: Good Discharge Disposition: Disch w/ Home Health Serv Discharge Instructions DIET: Follow Instructions for: Heart Healthy Diet, Diabetic Diet Activities you can perform: Full Weight Bearing, Shower Only-No Bath Activities to avoid: Strenuous Activity, Driving Additional Activity Instructio: no lifting > 8lbs or gallon of milk Follow up Referrals: Cardiology PCP Follow-up Surgical New Medications: 3-in-1 Bedside Toilet (3-in-1 Bedside Toilet) 1 Mis Mis 1 EA .ROUTE DIRECTED #1 EA Walker with Front Wheels (Walker with Front Wheels) 1 Mis Mis 1 EA .ROUTE DIRECTED #1 Ref 0 EA Amiodarone (Amiodarone) 200 Mg Tab 200 MG PO Q12HR heart rhythm #28 Ref 0 TAB Clopidogrel (Plavix) 75 Mg Tab 75 MG PO DAILY Blood Clot Prevention #30 Ref 2 TAB Docusate Sodium (Dok) 100 Mg Cap 100 MG PO BID Constipation #60 Ref 0 CAP Fluticasone Nasal [place] (Fluticasone Nasal [place]) 50 Mcg/Act Naspr 1 SPRAY NASAL BID nasal congestion #1 BOTTLE Furosemide (Furosemide) 40 Mg Tab 40 MG PO DAILY edema #5 Ref 1 TAB Metoprolol Tartrate (Metoprolol Tartrate) 25 Mg Tab 12.5 MG PO BID Blood Pressure Management #60 Ref 2 TAB Multiple Vitamins W/ Minerals (Thera M Plus) 1 Tab 1 TAB PO DAILY multi vitamin #30 Ref 1 TAB Potassium Chloride Microencaps (Potassium Chloride Microencaps) 20 Meq Tab 20 MEQ PO DAILY take with lasix #5 TAB Continued Medications: Aspirin (Aspirin) 81 Mg Tabdr 81 MG PO DAILY TAB Glimepiride (Glimepiride) 1 Mg Tab 1 MG PO DAILY Take with breakfast or first main meal Blood Sugar Management #30 Ref 0 TAB Metformin (Metformin) 500 Mg Tab 500 MG PO BIDPC With meals Blood Sugar Management #60 Ref 0 TAB Rosuvastatin (Crestor) 40 Mg Tab 40 MG PO DAILY Cholesterol Management #30 Ref 0 TAB Discontinued Medications: Ibuprofen (Ibuprofen) 200 Mg Tab 200 MG PO Q4H Ref 0 TAB Losartan-Hydrochlorothiazide (Losartan-Hydrochlorothiazide) 100-25 Mg Tab 1 TAB PO DAILY Blood Pressure Management #30 Ref 0 TAB Tadalafil (Cialis) 5 Mg Tab 5 MG PO DAILY Do not exceed 1 dose/day. Ref 0 TAB Jazz Morrow Sep 16, 2016 13:09
[2016-09-17] MEDS ORDERED: POTASSIUM CHLORIDE 20 MEQ CONTROLLED RELEASE TAB PO SCH (09:00)
[2016-09-17] MEDS ORDERED: FUROSEMIDE 40 MG TAB PO SCH (09:00)
== END 2016-09-16 15:05 | disposition home health service (06) | DRG 217 ==
LOC: HDOC 10:33 → HDIC 10:34 → HDOC 17:02 → HSDI 17:02 → HCIN 20:30 → HCIS 09-11 07:15 → HCVR 09-11 14:43 → HCIN 09-12 20:30
PROVIDERS: ADMIT Internal Medicine Cardiovascular Disease; ATTEND Internal Medicine Cardiovascular Disease
PROC: 4A023N7 Measurement of Cardiac Sampling and Pressure, Left Heart, Percutaneous Approach (ICD-10-PCS; 2016-09-09)
PROC: B2151ZZ Fluoroscopy of Left Heart using Low Osmolar Contrast (ICD-10-PCS; 2016-09-09)
PROC: B2111ZZ Fluoroscopy of Multiple Coronary Arteries using Low Osmolar Contrast (ICD-10-PCS; 2016-09-09)
PROC: 021009W Bypass Coronary Artery, One Artery from Aorta with Autologous Venous Tissue, Open Approach (ICD-10-PCS; 2016-09-11)
PROC: 02100Z9 Bypass Coronary Artery, One Artery from Left Internal Mammary, Open Approach (ICD-10-PCS; 2016-09-11)
PROC: 06BQ4ZZ Excision of Left Saphenous Vein, Percutaneous Endoscopic Approach (ICD-10-PCS; 2016-09-11)
PROC: 5A1221Z Performance of Cardiac Output, Continuous (ICD-10-PCS; 2016-09-11)
PROC: B246ZZ4 Ultrasonography of Right and Left Heart, Transesophageal (ICD-10-PCS; 2016-09-11)
PROC: 02RF08Z Replacement of Aortic Valve with Zooplastic Tissue, Open Approach (ICD-10-PCS; principal; 2016-09-11 07:10)
DX: I08.3 Combined rheumatic disorders of mitral, aortic and tricuspid valves (principal); J98.11 Atelectasis; I95.9 Hypotension, unspecified; E87.70 Fluid overload, unspecified; E11.9 Type 2 diabetes mellitus without complications; R50.82 Postprocedural fever; D72.829 Elevated white blood cell count, unspecified; I10 Essential (primary) hypertension; I25.10 Atherosclerotic heart disease of native coronary artery without angina pectoris; E78.5 Hyperlipidemia, unspecified; Z79.84 Long term (current) use of oral hypoglycemic drugs; Z80.0 Family history of malignant neoplasm of digestive organs; Z82.49 Family history of ischemic heart disease and other diseases of the circulatory system; Z87.891 Personal history of nicotine dependence
CPT/HCPCS: 71010; 71020; 76937; 80048; 81001; 82810; 82948; 83036; 83735; 85002; 85014; 85025; 85027; 85610; 85730; 86850; 86900; 86901; 86920; 87015; 87040; 87070; 87102; 87116; 87205; 87206; 87641; 88305; 88311; 93005; 93318; 93460; 93880; 93970; 93998; 94002; 94010; 94150; 94640; 94664; 94667; 94668; C1769; C1893; C9399; J0131; J0282; J0690; J1250; J1644; J1815; J1817; J1940; J2150; J2250; J2370; J2720; J3010; J3370; J3475; J3480; J7030; J7040; J7050; J7120; J7613; P9047